=== PATIENT | female | born 1985 | race Two or more races ===

== ENCOUNTER 2018-01-01 18:23 | Inpatient (IN) | payer OTHER ==
[2018-01-01] MEDS ORDERED: MELATONIN 5 MG TABLETS PO PRN (22:00)
--- NOTE | 2018-01-01 22:02 | HP ---
"Admission ROS [facility] Chief Complaint: Here for rehab. Hx cocaine use. On Suboxone. Allergies/Adverse Reactions: Allergies Allergy/AdvReac Type Severity Reaction Status Date / Time shellfish derived Allergy Verified 01/01/18 21:26 History of Present Illness: 32 yof w/ hx heroin use disorder x 10 years. Currently on Suboxone prescribed by [facility]. Current dose is 8/2 plus 2/.05 SL TID. Medications Last cocaine use 4 months ago. Was discharged from [facility] today, 01/01/18. 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 Was prescribed gabapentin for anxiety. denies pain. Depakote for seizures. Last seizure 3 years ago. Search Terms: Jasmina Nugent, 1985 Search Date: 01/01/2018 09:34:04 PM The Drug Utilization Report below displays all of the controlled substance prescriptions, if any, that your patient has filled in the last twelve months. The information displayed on this report is compiled from pharmacy submissions to the Department, and accurately reflects the information as submitted by the pharmacies. This report was requested by: Dianne South | Reference #: [id number] There are no results for the search terms that you entered. Exam Limitations: No Limitations - Ebola screening Have you traveled outside of the country in the last 21 days: No (N) Have you had contact with anyone from an Ebola affected area: No Do you have a fever: No - Review of Systems Constitutional: No Symptoms Reported, Changes in sleep (Difficulty falling asleep. Has rx'd w/ benadryl OTC) EENT: reports: Dental Problems (S/p tooth removal months ago. Chews and swallows ok.) Respiratory: reports: No Symptoms reported Cardiac: reports: Other (Rcent heart valve replacement. Denies chest pain, irregular heart rate, or shortness of breath.) GI: reports: No Symptoms Reported : reports: No Symptoms Reported Musculoskeletal: reports: No Symptoms Reported Integumentary: reports: No Symptoms Reported Neuro: reports: No Symptoms reported, Seizure (Last seizure 3 years ago) Endocrine: reports: No Symptoms Reported Hematology: reports: Easy Bleeding (Not at this time but on blood thinners.) Psychiatric: reports: Anxious (Hx aniet on gabapentin.), Depressed (Denies thoughts of harm to self or others.) Patient History - Smoking Cessation Smoking history: Unknown if ever smoked Admission Physical Exam [facility] - Physical General Appearance: Yes: Appropriately Dressed, Cachetic HEENTM: Yes: EOMI, Hearing grossly Normal, Normocephalic, DAVE Respiratory: Yes: Chest Non-Tender, Lungs Clear, Normal Breath Sounds Neck: Yes: No masses,lesions,Nodules, Supple Breast: Yes: Breast Exam Deferred Cardiology: Yes: Regular Rhythm, Murmur (Hx valve replacement.), Tachycardia Abdominal: Yes: Normal Bowel Sounds, Non Tender, Flat, Soft Genitourinary: Yes: Within Normal Limits Back: Yes: Normal Inspection Musculoskeletal: Yes: full range of Motion, Gait Steady Extremities: Yes: Normal Capillary Refill, Normal Inspection, Normal Range of Motion, Non-Tender 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, Fully Oriented, Motor Strength 5/5, Normal Mood/Affect Integumentary: Yes: Normal Color, Dry, Warm, Other (Healed recent mid-sternal surgical incision.) Lymphatic: Yes: Within Normal Limits - Diagnostic (1) Cocaine dependence in remission Current Visit: Yes Status: Chronic (2) Buprenorphine dependence Current Visit: Yes Status: Chronic (3) History of heart valve replacement Current Visit: Yes Status: Chronic (4) Murmur, cardiac Current Visit: Yes Status: Acute (5) Underweight due to inadequate caloric intake Current Visit: Yes Status: Acute (6) Hx of seizure disorder Current Visit: Yes Status: Acute (7) History of endocarditis Current Visit: No Status: Resolved Cleared for Admission [facility] - Detox or Rehab Claeared for Rehab Admission: Yes Inpatient Rehab Admission - Initial Determination Are CD services needed?: Yes Free of communicable disease: Yes Not in need of hospitalization: Yes - Rehab Admission Criteria Previous failed treatment: Yes Poor recovery environment: Yes Comorbidities: Yes Lacks judgement: No Patient is meeting Inpatient Rehab admission criteria:: Yes"
[2018-01-01] MEDS ORDERED: MAG HYDROX/AL HYDROX/SIMETH 30 ML UNIT-DOSE CUP PO PRN (22:15)
[2018-01-01] MEDS ORDERED: P-EPHED 60MG/TRIPROLIDI 2.5MG TABLET PO PRN (22:15)
[2018-01-01] MEDS ORDERED: ACETAMINOPHEN 325 MG TABLET (FP) PO PRN (22:15)
[2018-01-01] MEDS ORDERED: guaiFENesin/D-METHORPHAN HB 10 ML UNIT-DOSE CUPS PO PRN (22:15)
[2018-01-01] MEDS ORDERED: MAGNESIUM CITRATE 300 ML BOTTLE PO PRN (22:15)
[2018-01-01] MEDS ORDERED: MENTHOL/PHENOL 1 EACH UD MM PRN (22:15)
[2018-01-01] MEDS ORDERED: LOPERAMIDE HCL 2 MG CAPSULE PO PRN (22:15)
[2018-01-01] MEDS ORDERED: MAGNESIUM HYDROX 2400MG/30ML ORAL SUSPENSION 30 ML CUP PO PRN (22:15)
[2018-01-02] MEDS ORDERED: TUBERCULIN PPD 5 TU/0.1ML VIAL ID ONE
[2018-01-02] MEDS: METOPROLOL TARTRATE 25 MG TABLET (FP) PO SCH ×3 (00:22→21:08)
[2018-01-02] MEDS ORDERED: BUPRENORPHINE/NALOXONE 2 MG/0.5 MG FILM PACKET ONE ×3 (04:55→20:15)
[2018-01-02] MEDS ORDERED: BUPRENORPHINE/NALOXONE 8 MG/2 MG FILM PACKET ONE ×3 (04:56→20:15)
[2018-01-02] MEDS ORDERED: NALOXONE SL SCH (06:00)
[2018-01-02] MEDS ORDERED: BUPRENORPHINE SL SCH (06:00)
[2018-01-02] MEDS ORDERED: [UNRECOGNIZED DRUG - OTHER] SL SCH (06:00)
[2018-01-02] MEDS ORDERED: BUPRENORPHINE/NALOXONE 8 MG/2 MG FILM PACKET SL SCH (06:00)
[2018-01-02] MEDS ORDERED: BUPRENORPHINE/NALOXONE 2 MG/0.5 MG FILM PACKET SL SCH (06:00)
[2018-01-02] MEDS ORDERED: DOCUSATE SODIUM 100 MG CAPSULE (FP) PO SCH ×2 (06:00→10:00)
[2018-01-02] MEDS: BUPRENORPHINE/NALOXONE 1 EACH, BUPRENORPHINE/NALOXONE 1 EACH SL SCH ×3 (06:22→21:08)
[2018-01-02] MEDS: DOCUSATE SODIUM 100 MG CAPSULE (FP) PO SCH ×3 (06:22→21:07)
[2018-01-02] MEDS: ASPIRIN COATED 81 MG TABLET.EC PO SCH (09:42)
[2018-01-02] MEDS: PRENATAL VITAMINS W/ FOLIC ACID TABLET (FP) PO SCH (09:42)
[2018-01-02] MEDS: DIVALPROEX SODIUM 250 MG TABLET E.C. PO SCH ×2 (09:43→21:07)
[2018-01-02] MEDS: FLUCONAZOLE 100 MG TABLET (UD) PO SCH (09:43)
[2018-01-02] MEDS: APIXABAN 5 MG TABLET PO SCH ×2 (09:44→21:52)
[2018-01-02] MEDS ORDERED: APIXABAN 5 MG TABLET PO SCH ×2 (10:00)
[2018-01-02] MEDS ORDERED: FLUCONAZOLE 100 MG TABLET (UD) PO SCH (10:00)
[2018-01-02 10:20] LABS: HEMATOCRIT 27.1 % (32.4-45.2); HEMOGLOBIN 9.6 GM/dL (10.7-15.3); MCHC 35.4 g/dl (32.0-36.0); MEAN CELL VOLUME 84.5 fl (80-96); MEAN PLT VOLUME 7.6 fl (7.5-11.1); PLATELET COUNT 236 K/MM3 (134-434); RBC 3.21 M/mm3 (3.60-5.2); WHITE BLOOD COUNT 3.9 K/mm3 (4.0-10.0)
[2018-01-02 10:29] LABS: URINE APPEARANCE SLCLOUDY; URINE BILIRUBIN NEGATIVE (<2.0 mg/dL); URINE COLOR YELLOW; URINE GLUCOSE (UA) NEGATIVE (NEGATIVE); URINE KETONE NEGATIVE (NEGATIVE); URINE LEUK ESTERASE NEGATIVE (NEGATIVE); URINE NITRITE NEGATIVE (NEGATIVE); URINE PROTEIN NEGATIVE (NEGATIVE); URINE UROBILINOGEN NEGATIVE mg/dL (0.2-1.0)
[2018-01-02 10:37] LABS: ALBUMIN 3.2 g/dl (3.4-5.0); ANION GAP 8 (8-16); BLOOD UREA NITROGEN 21 mg/dL (7-18); CHLORIDE 104 mmol/L (98-107); CO2 28 mmol/L (21-32); GLUCOSE,RANDOM 93 mg/dL (74-106); SGOT/AST 16 U/L (15-37); SGPT/ALT 16 U/L (12-78); SODIUM 140 mmol/L (136-145)
[2018-01-02 10:39] LABS: ALK PHOS 73 U/L (45-117); BILIRUBIN,TOTAL 0.2 mg/dL (0.2-1.0); TOT PROT 7.2 g/dl (6.4-8.2)
[2018-01-02] MEDS: THIAMINE HCL 100 MG TABLET (FP) PO SCH (21:07)
[2018-01-02] MEDS ORDERED: PT OWN MED DRAWER 7, Y5N ONE (21:13)
[2018-01-03] MEDS ORDERED: BUPRENORPHINE/NALOXONE 2 MG/0.5 MG FILM PACKET ONE ×3 (03:18→21:13)
[2018-01-03] MEDS ORDERED: BUPRENORPHINE/NALOXONE 8 MG/2 MG FILM PACKET ONE ×3 (03:18→21:14)
[2018-01-03] MEDS: DOCUSATE SODIUM 100 MG CAPSULE (FP) PO SCH ×3 (06:15→21:11)
[2018-01-03] MEDS: BUPRENORPHINE/NALOXONE 1 EACH, BUPRENORPHINE/NALOXONE 1 EACH SL SCH ×4 (06:18→21:14)
[2018-01-03] MEDS ORDERED: PT OWN MED DRAWER 7, Y5N ONE ×3 (08:40→19:50)
[2018-01-03] MEDS: PRENATAL VITAMINS W/ FOLIC ACID TABLET (FP) PO SCH (09:58)
[2018-01-03] MEDS: ASPIRIN COATED 81 MG TABLET.EC PO SCH (09:58)
[2018-01-03] MEDS: METOPROLOL TARTRATE 25 MG TABLET (FP) PO SCH ×2 (09:58→21:11)
[2018-01-03] MEDS: APIXABAN 5 MG TABLET PO SCH ×2 (09:58→21:11)
[2018-01-03] MEDS: FLUCONAZOLE 100 MG TABLET (UD) PO SCH (11:00)
[2018-01-03] MEDS: DIVALPROEX SODIUM 250 MG TABLET E.C. PO SCH ×2 (11:00→21:10)
[2018-01-03] MEDS: THIAMINE HCL 100 MG TABLET (FP) PO SCH (21:09)
[2018-01-04] MEDS: DOCUSATE SODIUM 100 MG CAPSULE (FP) PO SCH ×3 (06:26→21:40)
[2018-01-04] MEDS ORDERED: BUPRENORPHINE/NALOXONE 2 MG/0.5 MG FILM PACKET ONE ×3 (08:25→19:36)
[2018-01-04] MEDS ORDERED: BUPRENORPHINE/NALOXONE 8 MG/2 MG FILM PACKET ONE ×3 (08:26→19:36)
[2018-01-04] MEDS ORDERED: PT OWN MED DRAWER 7, Y5N ONE ×3 (08:29→09:01)
[2018-01-04] MEDS: BUPRENORPHINE/NALOXONE 1 EACH, BUPRENORPHINE/NALOXONE 1 EACH SL SCH ×3 (08:59→21:40)
--- NOTE | 2018-01-04 09:48 | HP ---
Psychiatrist Admission - Data Date of interview: 01/04/18 Admission source: [facility] Identifying data: This is the first admission to [address] [place] [address] for this 32 years old H single female mother of 4 (kids reside with their father).Patient is undomiciled,supported by family. Medical History: Significant for H/O Endocarditis,H/O Heart valve replacement,H/ O seizures. Psychiatric History: Patient reports first contact with psychiatrist at 12 years old to address her stressful situation at home(bad parents divorce) .patient was placed on psychotherpay .She started on medications since 15 yo while bieng in .Patient was depressed,hyperactive.She was dx with ADHD, Bipolar disorder.She reports 3 psychiatric hospitalizations.Most recent was 2-3 years ago due to suicidal ideas while under influence of drugs.She stopped to see a psychiatrist about 1 years ago. Physical/Sexual Abuse/Trauma History: denies Vital Signs: Vital Signs - 24 hr 01/03/18 01/04/18 01/04/18 23:01 03:30 06:48 Temperature 97.7 F Pulse Rate 103 H 96 H Respiratory 16 18 Rate Blood Pressure 104/69 90/57 Allergies/Adverse Reactions: Allergies Allergy/AdvReac Type Severity Reaction Status Date / Time shellfish derived Allergy Verified 01/01/18 21:26 Date of last physical exam: 12/26/17 Concur with the findings of this exam: Yes - Substance Abuse/Tx History Hx Alcohol Use: Yes (socially) Hx Substance Use: Yes (cocainr since 17 yo,heroin iv since 17 yo- on suboxone 10 mg po tid) Substance Use Type: Cocaine, Heroin Hx Substance Use Treatment: Yes (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,no 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 time) Mental Status Exam - Mental Status Exam Alert and Oriented to: Time, Place, Person Cognitive Function: Grossly Intact Patient Appearance: Unkempt Mood: Sad, Anxious Affect: Labile Patient Behavior: Cooperative Speech Pattern: Clear Voice Loudness: Normal Thought Process: Goal Oriented Thought Disorder: Not Present Hallucinations: Denies Suicidal Ideation: Denies Homicidal Ideation: Denies Insight/Judgement: Fair Sleep: Fair Appetite: Good Muscle strength/Tone: Normal Gait/Station: Normal Psychiatric Findings - Problem List ([place] 1, 2,3) (1) Hx of seizure disorder Current Visit: Yes Status: Chronic (2) Buprenorphine dependence Current Visit: Yes Status: Chronic (3) Cocaine dependence in remission Current Visit: Yes Status: Chronic (4) History of heart valve replacement Current Visit: Yes Status: Resolved (5) History of endocarditis Current Visit: Yes Status: Resolved (6) Opioid dependence Current Visit: Yes Status: Chronic (7) Bipolar II disorder Current Visit: Yes Status: Chronic (8) Underweight due to inadequate caloric intake Current Visit: Yes Status: Chronic - Initial Treatment Plan Initial Treatment Plan: Continue Depakote 750 mg po bid,Neurontin 600 mg po tid, add Remeron 15 mg po hs.Will monitor progress.
[2018-01-04] MEDS: PRENATAL VITAMINS W/ FOLIC ACID TABLET (FP) PO SCH (10:01)
[2018-01-04] MEDS: DIVALPROEX 500 MG, DIVALPROEX 250 MG PO SCH ×2 (10:02→21:40)
[2018-01-04] MEDS: ASPIRIN COATED 81 MG TABLET.EC PO SCH (10:02)
[2018-01-04] MEDS: FLUCONAZOLE 100 MG TABLET (UD) PO SCH (10:03)
[2018-01-04] MEDS: APIXABAN 5 MG TABLET PO SCH ×2 (10:04→21:30)
[2018-01-04] MEDS: METOPROLOL TARTRATE 25 MG TABLET (FP) PO SCH ×2 (11:08→22:25)
--- NOTE | 2018-01-04 11:08 | EKG ---
Test Reason : Blood Pressure : / mmHG Vent. Rate : 100 BPM Atrial Rate : 100 BPM P-R Int : 122 ms QRS Dur : 082 ms QT Int : 342 ms P-R-T Axes : 047 039 056 degrees QTc Int : 441 ms NORMAL SINUS RHYTHM CANNOT RULE OUT ANTERIOR INFARCT , AGE UNDETERMINED ABNORMAL ECG NO PREVIOUS ECGS AVAILABLE Confirmed by GRICELDA ZAMORA, DAVID ([id number]) on 01/04/2018 11:08:17 AM Referred By: Confirmed By:DAVID MADISON MD
--- NOTE | 2018-01-04 14:05 | PN ---
[facility] Progress Note Note: Vital Signs Temperature 97.7 F 01/04/18 06:48 Pulse Rate 103 H 01/04/18 10:00 Respiratory Rate 18 01/04/18 06:48 Blood Pressure 91/58 01/04/18 10:00 O2 Sat by Pulse Oximetry (%) Patient asymptomatic reports occasional nausea suboxone renewal order Reference #: [id number] Others' Prescriptions Patient Name: Jasmina Nugent Date: 1985 Address: [address] [place] [address] Sex: Female Rx Written Rx Dispensed Drug Quantity Days Supply Prescriber Name 01/01/2018 01/01/2018 buprenorphine-naloxone 8-2 mg sl tablet 90 30 Ronny Escobar MD 01/01/2018 01/01/2018 buprenorphine-naloxone 2-0.5 mg sl tablet 90 30 Ronny Escobar MD medication order continue to monitor
[2018-01-04] MEDS ORDERED: BUPRENORPHINE/NALOXONE 2 MG/0.5 MG FILM PACKET SL SCH (17:00)
[2018-01-04] MEDS ORDERED: BUPRENORPHINE/NALOXONE 8 MG/2 MG FILM PACKET SL SCH ×2 (17:02→22:00)
[2018-01-04] MEDS ORDERED: DIVALPROEX SODIUM 250 MG TABLET E.C. ONE (19:38)
[2018-01-04] MEDS ORDERED: DIVALPROEX SODIUM 500 MG TABLET E.C. ONE (19:38)
[2018-01-04] MEDS: THIAMINE HCL 100 MG TABLET (FP) PO SCH (21:41)
[2018-01-04] MEDS: MIRTAZAPINE 15 MG TABLET (FP) PO SCH (23:09)
[2018-01-05] MEDS ORDERED: BUPRENORPHINE/NALOXONE 2 MG/0.5 MG FILM PACKET ONE ×3 (05:56→19:44)
[2018-01-05] MEDS ORDERED: BUPRENORPHINE/NALOXONE 8 MG/2 MG FILM PACKET ONE ×3 (05:57→19:44)
[2018-01-05] MEDS: DOCUSATE SODIUM 100 MG CAPSULE (FP) PO SCH ×3 (07:29→21:36)
[2018-01-05] MEDS ORDERED: DIVALPROEX SODIUM 250 MG TABLET E.C. ONE ×2 (08:37→19:44)
[2018-01-05] MEDS ORDERED: DIVALPROEX SODIUM 500 MG TABLET E.C. ONE ×2 (08:37→19:44)
[2018-01-05] MEDS ORDERED: PT OWN MED DRAWER 7, Y5N ONE (08:38)
[2018-01-05] MEDS: DIVALPROEX 500 MG, DIVALPROEX 250 MG PO SCH ×2 (09:11→21:36)
[2018-01-05] MEDS: BUPRENORPHINE/NALOXONE 1 EACH, BUPRENORPHINE/NALOXONE 1 EACH SL SCH ×3 (09:11→21:36)
[2018-01-05] MEDS: FLUCONAZOLE 100 MG TABLET (UD) PO SCH (09:12)
[2018-01-05] MEDS: APIXABAN 5 MG TABLET PO SCH ×2 (09:12→21:37)
[2018-01-05] MEDS: ASPIRIN COATED 81 MG TABLET.EC PO SCH (09:13)
[2018-01-05] MEDS: METOPROLOL TARTRATE 25 MG TABLET (FP) PO SCH ×2 (09:13→21:37)
[2018-01-05] MEDS: PRENATAL VITAMINS W/ FOLIC ACID TABLET (FP) PO SCH (09:13)
[2018-01-05] MEDS ORDERED: BUPRENORPHINE/NALOXONE 8 MG/2 MG FILM PACKET SL SCH (10:00)
[2018-01-05] MEDS ORDERED: BUPRENORPHINE/NALOXONE 2 MG/0.5 MG FILM PACKET SL SCH (10:00)
[2018-01-05] MEDS: MIRTAZAPINE 15 MG TABLET (FP) PO SCH (21:36)
[2018-01-05] MEDS: THIAMINE HCL 100 MG TABLET (FP) PO SCH (21:36)
[2018-01-06] MEDS: DOCUSATE SODIUM 100 MG CAPSULE (FP) PO SCH ×3 (06:40→21:09)
[2018-01-06] MEDS ORDERED: DIVALPROEX SODIUM 500 MG TABLET E.C. ONE ×2 (08:23→19:00)
[2018-01-06] MEDS ORDERED: DIVALPROEX SODIUM 250 MG TABLET E.C. ONE ×2 (08:24→19:00)
[2018-01-06] MEDS ORDERED: BUPRENORPHINE/NALOXONE 8 MG/2 MG FILM PACKET ONE ×3 (08:50→21:08)
[2018-01-06] MEDS ORDERED: BUPRENORPHINE/NALOXONE 2 MG/0.5 MG FILM PACKET ONE ×3 (08:50→21:08)
[2018-01-06] MEDS: BUPRENORPHINE/NALOXONE 1 EACH, BUPRENORPHINE/NALOXONE 1 EACH SL SCH ×3 (08:52→21:08)
[2018-01-06] MEDS: DIVALPROEX 500 MG, DIVALPROEX 250 MG PO SCH ×2 (09:56→21:09)
[2018-01-06] MEDS: FLUCONAZOLE 100 MG TABLET (UD) PO SCH (09:56)
[2018-01-06] MEDS: ASPIRIN COATED 81 MG TABLET.EC PO SCH (09:57)
[2018-01-06] MEDS: PRENATAL VITAMINS W/ FOLIC ACID TABLET (FP) PO SCH (09:57)
[2018-01-06] MEDS: APIXABAN 5 MG TABLET PO SCH ×2 (09:58→21:09)
[2018-01-06] MEDS: METOPROLOL TARTRATE 25 MG TABLET (FP) PO SCH ×2 (09:58→21:10)
[2018-01-06] MEDS: THIAMINE HCL 100 MG TABLET (FP) PO SCH (21:09)
[2018-01-06] MEDS: MIRTAZAPINE 15 MG TABLET (FP) PO SCH (21:09)
[2018-01-07] MEDS: DOCUSATE SODIUM 100 MG CAPSULE (FP) PO SCH ×3 (07:07→21:13)
[2018-01-07] MEDS ORDERED: DIVALPROEX SODIUM 500 MG TABLET E.C. ONE ×2 (08:09→19:27)
[2018-01-07] MEDS ORDERED: DIVALPROEX SODIUM 250 MG TABLET E.C. ONE ×2 (08:09→19:27)
[2018-01-07] MEDS: DIVALPROEX 500 MG, DIVALPROEX 250 MG PO SCH ×2 (09:03→21:13)
[2018-01-07] MEDS: FLUCONAZOLE 100 MG TABLET (UD) PO SCH (09:03)
[2018-01-07] MEDS: ASPIRIN COATED 81 MG TABLET.EC PO SCH (09:03)
[2018-01-07] MEDS: APIXABAN 5 MG TABLET PO SCH ×2 (09:04→21:13)
[2018-01-07] MEDS ORDERED: BUPRENORPHINE/NALOXONE 2 MG/0.5 MG FILM PACKET ONE ×3 (09:07→21:12)
[2018-01-07] MEDS ORDERED: BUPRENORPHINE/NALOXONE 8 MG/2 MG FILM PACKET ONE ×3 (09:07→21:12)
[2018-01-07] MEDS: BUPRENORPHINE/NALOXONE 1 EACH, BUPRENORPHINE/NALOXONE 1 EACH SL SCH ×3 (09:08→21:13)
[2018-01-07] MEDS: METOPROLOL TARTRATE 25 MG TABLET (FP) PO SCH ×2 (10:21→21:15)
[2018-01-07] MEDS: PRENATAL VITAMINS W/ FOLIC ACID TABLET (FP) PO SCH (10:21)
[2018-01-07] MEDS: MIRTAZAPINE 15 MG TABLET (FP) PO SCH (21:13)
[2018-01-07] MEDS: THIAMINE HCL 100 MG TABLET (FP) PO SCH (21:13)
[2018-01-08] MEDS: DOCUSATE SODIUM 100 MG CAPSULE (FP) PO SCH ×3 (06:27→21:11)
[2018-01-08] MEDS ORDERED: BUPRENORPHINE/NALOXONE 2 MG/0.5 MG FILM PACKET ONE ×3 (08:46→19:25)
[2018-01-08] MEDS ORDERED: BUPRENORPHINE/NALOXONE 8 MG/2 MG FILM PACKET ONE ×3 (08:46→19:26)
[2018-01-08] MEDS ORDERED: DIVALPROEX SODIUM 250 MG TABLET E.C. ONE ×2 (08:47→19:21)
[2018-01-08] MEDS ORDERED: DIVALPROEX SODIUM 500 MG TABLET E.C. ONE ×2 (08:47→19:21)
[2018-01-08] MEDS: BUPRENORPHINE/NALOXONE 1 EACH, BUPRENORPHINE/NALOXONE 1 EACH SL SCH ×3 (08:54→21:10)
[2018-01-08] MEDS: DIVALPROEX 500 MG, DIVALPROEX 250 MG PO SCH ×2 (09:56→21:10)
[2018-01-08] MEDS: ASPIRIN COATED 81 MG TABLET.EC PO SCH (09:57)
[2018-01-08] MEDS: FLUCONAZOLE 100 MG TABLET (UD) PO SCH (09:57)
[2018-01-08] MEDS: APIXABAN 5 MG TABLET PO SCH ×2 (09:57→21:11)
[2018-01-08] MEDS: METOPROLOL TARTRATE 25 MG TABLET (FP) PO SCH ×2 (09:58→21:15)
[2018-01-08] MEDS: PRENATAL VITAMINS W/ FOLIC ACID TABLET (FP) PO SCH (09:58)
[2018-01-08] MEDS: MIRTAZAPINE 15 MG TABLET (FP) PO SCH (21:11)
[2018-01-08] MEDS: THIAMINE HCL 100 MG TABLET (FP) PO SCH (21:13)
[2018-01-09] MEDS: DOCUSATE SODIUM 100 MG CAPSULE (FP) PO SCH ×3 (07:19→21:12)
[2018-01-09] MEDS ORDERED: DIVALPROEX SODIUM 500 MG TABLET E.C. ONE ×2 (08:39→19:15)
[2018-01-09] MEDS ORDERED: DIVALPROEX SODIUM 250 MG TABLET E.C. ONE ×2 (08:39→19:15)
[2018-01-09] MEDS ORDERED: BUPRENORPHINE/NALOXONE 2 MG/0.5 MG FILM PACKET ONE ×3 (09:01→21:14)
[2018-01-09] MEDS ORDERED: BUPRENORPHINE/NALOXONE 8 MG/2 MG FILM PACKET ONE ×3 (09:01→21:14)
[2018-01-09] MEDS: BUPRENORPHINE/NALOXONE 1 EACH, BUPRENORPHINE/NALOXONE 1 EACH SL SCH ×3 (09:03→21:14)
[2018-01-09] MEDS: FLUCONAZOLE 100 MG TABLET (UD) PO SCH (09:40)
[2018-01-09] MEDS: DIVALPROEX 500 MG, DIVALPROEX 250 MG PO SCH ×2 (09:41→21:12)
[2018-01-09] MEDS: PRENATAL VITAMINS W/ FOLIC ACID TABLET (FP) PO SCH (09:41)
[2018-01-09] MEDS: ASPIRIN COATED 81 MG TABLET.EC PO SCH (09:41)
[2018-01-09] MEDS: APIXABAN 5 MG TABLET PO SCH ×2 (09:41→21:12)
[2018-01-09] MEDS: METOPROLOL TARTRATE 25 MG TABLET (FP) PO SCH ×2 (09:41→21:15)
[2018-01-09] MEDS: MIRTAZAPINE 15 MG TABLET (FP) PO SCH (21:12)
[2018-01-09] MEDS: THIAMINE HCL 100 MG TABLET (FP) PO SCH (21:12)
[2018-01-10] MEDS: DOCUSATE SODIUM 100 MG CAPSULE (FP) PO SCH ×3 (07:58→21:12)
[2018-01-10] MEDS ORDERED: DIVALPROEX SODIUM 500 MG TABLET E.C. ONE ×2 (08:42→19:23)
[2018-01-10] MEDS ORDERED: DIVALPROEX SODIUM 250 MG TABLET E.C. ONE ×2 (08:42→19:23)
[2018-01-10] MEDS ORDERED: BUPRENORPHINE/NALOXONE 2 MG/0.5 MG FILM PACKET ONE ×3 (09:48→21:11)
[2018-01-10] MEDS ORDERED: BUPRENORPHINE/NALOXONE 8 MG/2 MG FILM PACKET ONE ×3 (09:48→21:11)
[2018-01-10] MEDS: BUPRENORPHINE/NALOXONE 1 EACH, BUPRENORPHINE/NALOXONE 1 EACH SL SCH ×3 (09:55→21:13)
[2018-01-10] MEDS: APIXABAN 5 MG TABLET PO SCH ×2 (10:03→21:12)
[2018-01-10] MEDS: DIVALPROEX 500 MG, DIVALPROEX 250 MG PO SCH ×2 (10:03→21:12)
[2018-01-10] MEDS: PRENATAL VITAMINS W/ FOLIC ACID TABLET (FP) PO SCH (10:03)
[2018-01-10] MEDS: ASPIRIN COATED 81 MG TABLET.EC PO SCH (10:04)
[2018-01-10] MEDS: FLUCONAZOLE 100 MG TABLET (UD) PO SCH (10:04)
[2018-01-10] MEDS: METOPROLOL TARTRATE 25 MG TABLET (FP) PO SCH ×2 (10:04→21:12)
[2018-01-10] MEDS: MIRTAZAPINE 15 MG TABLET (FP) PO SCH (21:12)
[2018-01-10] MEDS: THIAMINE HCL 100 MG TABLET (FP) PO SCH (21:14)
[2018-01-11] MEDS: DOCUSATE SODIUM 100 MG CAPSULE (FP) PO SCH ×3 (06:31→21:10)
[2018-01-11] MEDS ORDERED: DIVALPROEX SODIUM 250 MG TABLET E.C. ONE ×2 (08:26→19:52)
[2018-01-11] MEDS ORDERED: DIVALPROEX SODIUM 500 MG TABLET E.C. ONE ×2 (08:26→19:52)
[2018-01-11] MEDS ORDERED: BUPRENORPHINE/NALOXONE 2 MG/0.5 MG FILM PACKET ONE ×3 (09:07→21:09)
[2018-01-11] MEDS ORDERED: BUPRENORPHINE/NALOXONE 8 MG/2 MG FILM PACKET ONE ×3 (09:07→21:10)
[2018-01-11] MEDS: BUPRENORPHINE/NALOXONE 1 EACH, BUPRENORPHINE/NALOXONE 1 EACH SL SCH ×3 (09:09→21:10)
[2018-01-11] MEDS: FLUCONAZOLE 100 MG TABLET (UD) PO SCH (09:09)
[2018-01-11] MEDS: PRENATAL VITAMINS W/ FOLIC ACID TABLET (FP) PO SCH (09:09)
[2018-01-11] MEDS: ASPIRIN COATED 81 MG TABLET.EC PO SCH (09:09)
[2018-01-11] MEDS: DIVALPROEX 500 MG, DIVALPROEX 250 MG PO SCH ×2 (09:09→21:10)
[2018-01-11] MEDS: APIXABAN 5 MG TABLET PO SCH ×2 (09:10→21:10)
[2018-01-11] MEDS: METOPROLOL TARTRATE 25 MG TABLET (FP) PO SCH ×2 (09:11→21:30)
[2018-01-11] MEDS ORDERED: PT OWN MED DRAWER 7, Y5N ONE (21:05)
[2018-01-11] MEDS: MIRTAZAPINE 15 MG TABLET (FP) PO SCH (21:10)
[2018-01-11] MEDS: THIAMINE HCL 100 MG TABLET (FP) PO SCH (21:13)
[2018-01-12] MEDS: DOCUSATE SODIUM 100 MG CAPSULE (FP) PO SCH ×3 (06:22→21:04)
[2018-01-12] MEDS ORDERED: DIVALPROEX SODIUM 250 MG TABLET E.C. ONE ×2 (08:30→20:18)
[2018-01-12] MEDS ORDERED: DIVALPROEX SODIUM 500 MG TABLET E.C. ONE ×2 (08:30→20:18)
[2018-01-12] MEDS: FLUCONAZOLE 100 MG TABLET (UD) PO SCH (09:48)
[2018-01-12] MEDS: DIVALPROEX 500 MG, DIVALPROEX 250 MG PO SCH ×2 (09:49→21:03)
[2018-01-12] MEDS: APIXABAN 5 MG TABLET PO SCH ×2 (09:49→21:03)
[2018-01-12] MEDS: PRENATAL VITAMINS W/ FOLIC ACID TABLET (FP) PO SCH (09:49)
[2018-01-12] MEDS: ASPIRIN COATED 81 MG TABLET.EC PO SCH (09:50)
[2018-01-12] MEDS: BUPRENORPHINE/NALOXONE 1 EACH, BUPRENORPHINE/NALOXONE 1 EACH SL SCH ×3 (09:51→21:04)
[2018-01-12] MEDS ORDERED: BUPRENORPHINE/NALOXONE 2 MG/0.5 MG FILM PACKET ONE ×3 (09:51→20:20)
[2018-01-12] MEDS ORDERED: BUPRENORPHINE/NALOXONE 8 MG/2 MG FILM PACKET ONE ×3 (09:51→20:21)
[2018-01-12] MEDS: METOPROLOL TARTRATE 25 MG TABLET (FP) PO SCH ×2 (09:53→21:05)
[2018-01-12] MEDS: COLLOIDAL OATMEAL 1 BAR EACH TP PRN (15:00)
[2018-01-12] MEDS: MIRTAZAPINE 15 MG TABLET (FP) PO SCH (21:04)
[2018-01-12] MEDS: THIAMINE HCL 100 MG TABLET (FP) PO SCH (21:04)
[2018-01-13] MEDS: DOCUSATE SODIUM 100 MG CAPSULE (FP) PO SCH ×3 (06:42→21:17)
[2018-01-13] MEDS ORDERED: BUPRENORPHINE/NALOXONE 8 MG/2 MG FILM PACKET ONE ×3 (08:15→21:12)
[2018-01-13] MEDS ORDERED: BUPRENORPHINE/NALOXONE 2 MG/0.5 MG FILM PACKET ONE ×3 (08:15→21:12)
[2018-01-13] MEDS ORDERED: DIVALPROEX SODIUM 500 MG TABLET E.C. ONE ×2 (08:16→19:25)
[2018-01-13] MEDS ORDERED: DIVALPROEX SODIUM 250 MG TABLET E.C. ONE ×2 (08:16→19:25)
[2018-01-13] MEDS: FLUCONAZOLE 100 MG TABLET (UD) PO SCH (09:01)
[2018-01-13] MEDS: DIVALPROEX 500 MG, DIVALPROEX 250 MG PO SCH ×2 (09:01→21:17)
[2018-01-13] MEDS: APIXABAN 5 MG TABLET PO SCH ×2 (09:01→21:17)
[2018-01-13] MEDS: BUPRENORPHINE/NALOXONE 1 EACH, BUPRENORPHINE/NALOXONE 1 EACH SL SCH ×3 (09:02→21:19)
[2018-01-13] MEDS: PRENATAL VITAMINS W/ FOLIC ACID TABLET (FP) PO SCH (09:02)
[2018-01-13] MEDS: METOPROLOL TARTRATE 25 MG TABLET (FP) PO SCH ×2 (09:02→21:18)
[2018-01-13] MEDS: ASPIRIN COATED 81 MG TABLET.EC PO SCH (09:02)
--- NOTE | 2018-01-13 14:45 | PN ---
[facility] Progress Note Note: DEPAKOTE LEVEL WNL. NO CHANGES IN TREATMENT REQUIRED. Vital Signs Temperature 97.7 F 01/13/18 06:39 Pulse Rate 114 H 01/13/18 09:28 Respiratory Rate 16 01/13/18 06:39 Blood Pressure 97/66 01/13/18 09:28 O2 Sat by Pulse Oximetry (%) Laboratory Tests 01/02/18 01/02/18 01/02/18 08:00 08:00 08:00 WBC 3.9 L RBC 3.21 L Hgb 9.6 L Hct 27.1 L MCV 84.5 MCH 30.0 MCHC 35.4 RDW 16.0 H Plt Count 236 MPV 7.6 Sodium 140 Potassium 4.0 Chloride 104 Carbon Dioxide 28 Anion Gap 8 BUN 21 H Creatinine 1.0 Creat Clearance w eGFR > 60 Random Glucose 93 Calcium 10.0 Total Bilirubin 0.2 AST 16 ALT 16 Alkaline Phosphatase 73 Total Protein 7.2 Albumin 3.2 L Urine Color Urine Appearance Urine pH Ur Specific [place] Urine Protein Urine Glucose (UA) Urine Ketones Urine Blood Urine Nitrite Urine Bilirubin Urine Urobilinogen Ur Leukocyte Esterase Valproic Acid RPR Titer Nonreactive 01/02/18 01/13/18 08:20 08:30 WBC RBC Hgb Hct MCV MCH MCHC RDW Plt Count MPV Sodium Potassium Chloride Carbon Dioxide Anion Gap BUN Creatinine Creat Clearance w eGFR Random Glucose Calcium Total Bilirubin AST ALT Alkaline Phosphatase Total Protein Albumin Urine Color Yellow Urine Appearance Slcloudy Urine pH 6.0 Ur Specific [place] 1.017 Urine Protein Negative Urine Glucose (UA) Negative Urine Ketones Negative Urine Blood Negative Urine Nitrite Negative Urine Bilirubin Negative Urine Urobilinogen Negative Ur Leukocyte Esterase Negative Valproic Acid 82.6 RPR Titer
--- NOTE | 2018-01-13 16:31 | PN ---
Psychiatric Progress Note Vital Signs: Vital Signs Period Temp Pulse Resp BP Sys/Hurtado Pulse Ox Last 24 Hr 97.7 F 101-118 16-18 97-115/64-66 Date of Session: 01/13/18 Chief Complaint:: Isaak still depressed,Wellbutrin used to help in the past. HPI: patient addressed Opioid ,Cocaine dependence comorbid with Bipolar disorder. ROS: H/O seizure disorder,H/O heart valve replacement. Current Medications: Active Medications Generic Name Dose Route Start Last Admin Trade Name Freq PRN Reason Stop Dose Admin Acetaminophen 650 mg 01/01/18 22:15 Tylenol - PO Q4H PRN MODERATE PAIN Al Hydroxide/Mg Hydroxide 30 ml 01/01/18 22:15 Mylanta Oral Suspension - PO Q6H PRN DYSPEPSIA Apixaban 5 mg 01/02/18 10:00 01/13/18 09:01 Eliquis - PO 5 mg BID SUNITA Administration Aspirin 81 mg 01/02/18 10:00 01/13/18 09:02 Ecotrin - PO 81 mg DAILY SUNITA Administration Buprenorphine/Naloxone 1 each/ 2 each 01/06/18 09:00 01/13/18 14:01 Buprenorphine/Naloxone 1 each SL 2 each TID@0900,1500,2200 SUNITA Administration Bupropion HCl 150 mg 01/14/18 10:00 Wellbutrin - PO BID@1000,1400 SUNITA Bupropion HCl 150 mg 01/13/18 16:24 Wellbutrin - PO 01/13/18 16:25 ONCE STA Colloidal Oatmeal 1 applic 01/11/18 14:05 01/12/18 15:00 Aveeno Soap - TP 1 applic DAILY PRN Administration HYGEINE Divalproex Sodium 500 mg/ 750 mg 01/04/18 10:00 01/13/18 09:01 Divalproex Sodium 250 mg PO 750 mg BID SUNITA Administration Docusate Sodium 100 mg 01/02/18 06:00 01/13/18 13:57 Colace - PO 100 mg TID SUNITA Administration Eucalyptus/Menthol/Phenol/Sorbitol 1 each 01/01/18 22:15 Cepastat Lozenge - MM Q4H PRN SORE THROAT Fluconazole 400 mg 01/02/18 10:00 01/13/18 09:01 Diflucan - PO 400 mg DAILY SUNITA Administration Guaifenesin 10 ml 01/01/18 22:15 Robitussin Dm - PO Q6H PRN COUGH Loperamide HCl 4 mg 01/01/18 22:15 Imodium - PO Q6H PRN DIARRHEA Magnesium Citrate 300 ml 01/01/18 22:15 Citroma - PO Q48H PRN CONSTIPATION Magnesium Hydroxide 30 ml 01/01/18 22:15 Milk Of Magnesia - PO DAILY PRN CONSTIPATION Melatonin 5 mg 01/01/18 22:00 Melatonin PO HS PRN INSOMNIA Metoprolol Tartrate 12.5 mg 01/01/18 22:00 01/13/18 09:02 Lopressor - PO Not Given BID SUNITA Mirtazapine 15 mg 01/04/18 22:00 01/12/18 21:04 Remeron - PO 15 mg HS SUNITA Administration Multivit/Folic Acid/Iron 1 tab 01/02/18 10:00 01/13/18 09:02 Vitamins (Sjr) - PO 1 tab DAILY SUNITA Administration Pseudoephedrine/Triprolidine 1 combo 01/01/18 22:15 Actifed - PO TID PRN NASAL CONGESTION Thiamine HCl 100 mg 01/02/18 22:00 01/12/18 21:04 Vitamin B1 - PO 100 mg HS SUNITA Administration Current Side Effect: No Lab tests ordered: No Lab tests reviewed: Yes Provider note:: Chart was revuewed,patient was evalusted,medications has been discussed with the patient .She reports that she responded well to wellbutrin in the past. properties of wellbutrin has been discussd with the patient including side feects,benefits and dose adjustement.Wellbutrin 150 mg po bid will be started today. supportive therapy provided. Total face to face time:: 25 Mental Status Exam - Mental Status Exam Alert and Oriented to: Time, Place, Person Cognitive Function: Grossly Intact Patient Appearance: Unkempt Mood: Depressed, Sad Affect: Mood Congruent, Labile Patient Behavior: Cooperative Speech Pattern: Clear Voice Loudness: Normal Thought Process: Goal Oriented Thought Disorder: Not Present Hallucinations: Denies Suicidal Ideation: Denies Homicidal Ideation: Denies Insight/Judgement: Fair Sleep: Fair Appetite: Fair Muscle strength/Tone: Normal Gait/Station: Normal Psychiatric Treatment Plan - Problem List (1) Hx of seizure disorder Current Visit: Yes (2) Buprenorphine dependence Current Visit: Yes (3) Cocaine dependence in remission Current Visit: Yes (4) History of heart valve replacement Current Visit: Yes (5) History of endocarditis Current Visit: Yes (6) Opioid dependence Current Visit: Yes (7) Bipolar II disorder Current Visit: Yes (8) Underweight due to inadequate caloric intake Current Visit: Yes
[2018-01-13] MEDS ORDERED: buPROPion HCL 75 MG TABLET PO ONE (16:45)
[2018-01-13] MEDS ORDERED: PT OWN MED DRAWER 7, Y5N ONE (21:12)
[2018-01-13] MEDS: MIRTAZAPINE 15 MG TABLET (FP) PO SCH (21:17)
[2018-01-13] MEDS: THIAMINE HCL 100 MG TABLET (FP) PO SCH (21:20)
[2018-01-14] MEDS: DOCUSATE SODIUM 100 MG CAPSULE (FP) PO SCH ×3 (06:29→21:10)
[2018-01-14] MEDS ORDERED: DIVALPROEX SODIUM 500 MG TABLET E.C. ONE ×2 (08:30→19:18)
[2018-01-14] MEDS ORDERED: DIVALPROEX SODIUM 250 MG TABLET E.C. ONE ×2 (08:31→19:19)
[2018-01-14] MEDS ORDERED: BUPRENORPHINE/NALOXONE 8 MG/2 MG FILM PACKET ONE ×3 (09:01→21:13)
[2018-01-14] MEDS ORDERED: BUPRENORPHINE/NALOXONE 2 MG/0.5 MG FILM PACKET ONE ×3 (09:01→21:12)
[2018-01-14] MEDS: FLUCONAZOLE 100 MG TABLET (UD) PO SCH (09:04)
[2018-01-14] MEDS: DIVALPROEX 500 MG, DIVALPROEX 250 MG PO SCH ×2 (09:04→21:10)
[2018-01-14] MEDS: buPROPion HCL 75 MG TABLET PO SCH ×2 (09:05→13:44)
[2018-01-14] MEDS: ASPIRIN COATED 81 MG TABLET.EC PO SCH (09:05)
[2018-01-14] MEDS: PRENATAL VITAMINS W/ FOLIC ACID TABLET (FP) PO SCH (09:05)
[2018-01-14] MEDS: APIXABAN 5 MG TABLET PO SCH ×2 (09:05→21:10)
[2018-01-14] MEDS: METOPROLOL TARTRATE 25 MG TABLET (FP) PO SCH ×2 (09:06→21:10)
[2018-01-14] MEDS: BUPRENORPHINE/NALOXONE 1 EACH, BUPRENORPHINE/NALOXONE 1 EACH SL SCH ×3 (09:06→21:14)
[2018-01-14] MEDS: MIRTAZAPINE 15 MG TABLET (FP) PO SCH (21:10)
[2018-01-14] MEDS: THIAMINE HCL 100 MG TABLET (FP) PO SCH (21:11)
[2018-01-15] MEDS: DOCUSATE SODIUM 100 MG CAPSULE (FP) PO SCH ×3 (06:59→21:14)
[2018-01-15] MEDS ORDERED: BUPRENORPHINE/NALOXONE 2 MG/0.5 MG FILM PACKET ONE ×3 (08:14→21:12)
[2018-01-15] MEDS ORDERED: BUPRENORPHINE/NALOXONE 8 MG/2 MG FILM PACKET ONE ×3 (08:14→21:13)
[2018-01-15] MEDS ORDERED: DIVALPROEX SODIUM 250 MG TABLET E.C. ONE ×2 (08:15→20:00)
[2018-01-15] MEDS ORDERED: DIVALPROEX SODIUM 500 MG TABLET E.C. ONE ×2 (08:15→20:00)
[2018-01-15] MEDS: APIXABAN 5 MG TABLET PO SCH ×2 (09:16→21:10)
[2018-01-15] MEDS: DIVALPROEX 500 MG, DIVALPROEX 250 MG PO SCH ×2 (09:16→21:10)
[2018-01-15] MEDS: ASPIRIN COATED 81 MG TABLET.EC PO SCH (09:16)
[2018-01-15] MEDS: PRENATAL VITAMINS W/ FOLIC ACID TABLET (FP) PO SCH (09:16)
[2018-01-15] MEDS: buPROPion HCL 75 MG TABLET PO SCH ×2 (09:17→14:34)
[2018-01-15] MEDS: BUPRENORPHINE/NALOXONE 1 EACH, BUPRENORPHINE/NALOXONE 1 EACH SL SCH ×3 (09:18→21:14)
[2018-01-15] MEDS: METOPROLOL TARTRATE 25 MG TABLET (FP) PO SCH ×2 (09:19→21:14)
[2018-01-15] MEDS: THIAMINE HCL 100 MG TABLET (FP) PO SCH (21:11)
[2018-01-15] MEDS: MIRTAZAPINE 15 MG TABLET (FP) PO SCH (21:11)
[2018-01-16] MEDS: DOCUSATE SODIUM 100 MG CAPSULE (FP) PO SCH ×3 (06:39→21:05)
[2018-01-16] MEDS ORDERED: BUPRENORPHINE/NALOXONE 2 MG/0.5 MG FILM PACKET ONE ×3 (08:42→19:15)
[2018-01-16] MEDS ORDERED: BUPRENORPHINE/NALOXONE 8 MG/2 MG FILM PACKET ONE ×3 (08:42→19:15)
[2018-01-16] MEDS ORDERED: DIVALPROEX SODIUM 500 MG TABLET E.C. ONE ×2 (08:43→19:16)
[2018-01-16] MEDS ORDERED: DIVALPROEX SODIUM 250 MG TABLET E.C. ONE ×2 (08:43→19:16)
[2018-01-16] MEDS: ASPIRIN COATED 81 MG TABLET.EC PO SCH (09:10)
[2018-01-16] MEDS: APIXABAN 5 MG TABLET PO SCH ×2 (09:10→21:03)
[2018-01-16] MEDS: PRENATAL VITAMINS W/ FOLIC ACID TABLET (FP) PO SCH (09:10)
[2018-01-16] MEDS: buPROPion HCL 75 MG TABLET PO SCH ×2 (09:10→15:00)
[2018-01-16] MEDS: DIVALPROEX 500 MG, DIVALPROEX 250 MG PO SCH ×2 (09:10→21:03)
[2018-01-16] MEDS: METOPROLOL TARTRATE 25 MG TABLET (FP) PO SCH ×2 (09:11→21:06)
[2018-01-16] MEDS: BUPRENORPHINE/NALOXONE 1 EACH, BUPRENORPHINE/NALOXONE 1 EACH SL SCH ×3 (09:12→21:04)
[2018-01-16] MEDS: MIRTAZAPINE 15 MG TABLET (FP) PO SCH (21:03)
[2018-01-16] MEDS: THIAMINE HCL 100 MG TABLET (FP) PO SCH (21:03)
[2018-01-17] MEDS: DOCUSATE SODIUM 100 MG CAPSULE (FP) PO SCH ×3 (06:45→21:05)
[2018-01-17] MEDS ORDERED: DIVALPROEX SODIUM 500 MG TABLET E.C. ONE ×2 (08:25→19:11)
[2018-01-17] MEDS ORDERED: DIVALPROEX SODIUM 250 MG TABLET E.C. ONE ×2 (08:25→19:11)
[2018-01-17] MEDS ORDERED: PT OWN MED DRAWER 7, Y5N ONE ×2 (08:27→13:39)
[2018-01-17] MEDS ORDERED: BUPRENORPHINE/NALOXONE 2 MG/0.5 MG FILM PACKET ONE ×3 (09:07→21:07)
[2018-01-17] MEDS ORDERED: BUPRENORPHINE/NALOXONE 8 MG/2 MG FILM PACKET ONE ×3 (09:07→21:07)
[2018-01-17] MEDS: BUPRENORPHINE/NALOXONE 1 EACH, BUPRENORPHINE/NALOXONE 1 EACH SL SCH ×3 (09:19→21:07)
[2018-01-17] MEDS: APIXABAN 5 MG TABLET PO SCH ×2 (09:20→21:05)
[2018-01-17] MEDS: PRENATAL VITAMINS W/ FOLIC ACID TABLET (FP) PO SCH (09:20)
[2018-01-17] MEDS: DIVALPROEX 500 MG, DIVALPROEX 250 MG PO SCH ×2 (09:20→21:05)
[2018-01-17] MEDS: METOPROLOL TARTRATE 25 MG TABLET (FP) PO SCH ×2 (09:20→21:08)
[2018-01-17] MEDS: buPROPion HCL 75 MG TABLET PO SCH ×2 (09:21→13:39)
[2018-01-17] MEDS: ASPIRIN COATED 81 MG TABLET.EC PO SCH (09:21)
[2018-01-17] MEDS: MIRTAZAPINE 15 MG TABLET (FP) PO SCH (21:05)
[2018-01-17] MEDS: THIAMINE HCL 100 MG TABLET (FP) PO SCH (21:05)
[2018-01-18] MEDS: DOCUSATE SODIUM 100 MG CAPSULE (FP) PO SCH ×3 (06:57→21:04)
[2018-01-18] MEDS ORDERED: DIVALPROEX SODIUM 500 MG TABLET E.C. ONE ×2 (09:10→20:26)
[2018-01-18] MEDS ORDERED: DIVALPROEX SODIUM 250 MG TABLET E.C. ONE ×2 (09:10→20:27)
[2018-01-18] MEDS ORDERED: BUPRENORPHINE/NALOXONE 8 MG/2 MG FILM PACKET ONE ×3 (09:38→20:26)
[2018-01-18] MEDS ORDERED: BUPRENORPHINE/NALOXONE 2 MG/0.5 MG FILM PACKET ONE ×3 (09:38→20:25)
[2018-01-18] MEDS: DIVALPROEX 500 MG, DIVALPROEX 250 MG PO SCH ×2 (09:48→21:04)
[2018-01-18] MEDS: ASPIRIN COATED 81 MG TABLET.EC PO SCH (09:49)
[2018-01-18] MEDS: APIXABAN 5 MG TABLET PO SCH ×2 (09:49→21:05)
[2018-01-18] MEDS: BUPRENORPHINE/NALOXONE 1 EACH, BUPRENORPHINE/NALOXONE 1 EACH SL SCH ×3 (09:49→21:05)
[2018-01-18] MEDS: METOPROLOL TARTRATE 25 MG TABLET (FP) PO SCH ×2 (09:51→21:04)
[2018-01-18] MEDS: PRENATAL VITAMINS W/ FOLIC ACID TABLET (FP) PO SCH (11:23)
[2018-01-18] MEDS: buPROPion HCL 75 MG TABLET PO SCH ×2 (11:24→14:06)
[2018-01-18] MEDS ORDERED: PT OWN MED DRAWER 7, Y5N ONE (13:17)
[2018-01-18] MEDS: THIAMINE HCL 100 MG TABLET (FP) PO SCH (21:04)
[2018-01-18] MEDS: QUEtiapine FUMARATE 50 MG TABLET PO SCH (21:05)
[2018-01-19] MEDS: DOCUSATE SODIUM 100 MG CAPSULE (FP) PO SCH ×3 (07:06→21:24)
[2018-01-19] MEDS ORDERED: PT OWN MED DRAWER 7, Y5N ONE (08:47)
[2018-01-19] MEDS ORDERED: BUPRENORPHINE/NALOXONE 2 MG/0.5 MG FILM PACKET ONE ×3 (08:51→20:26)
[2018-01-19] MEDS ORDERED: BUPRENORPHINE/NALOXONE 8 MG/2 MG FILM PACKET ONE ×3 (08:52→20:27)
[2018-01-19] MEDS ORDERED: DIVALPROEX SODIUM 500 MG TABLET E.C. ONE ×2 (08:53→20:28)
[2018-01-19] MEDS ORDERED: DIVALPROEX SODIUM 250 MG TABLET E.C. ONE ×2 (08:53→20:28)
[2018-01-19] MEDS: ASPIRIN COATED 81 MG TABLET.EC PO SCH (09:35)
[2018-01-19] MEDS: METOPROLOL TARTRATE 25 MG TABLET (FP) PO SCH ×2 (09:35→21:24)
[2018-01-19] MEDS: buPROPion HCL 75 MG TABLET PO SCH ×2 (09:35→13:51)
[2018-01-19] MEDS: DIVALPROEX 500 MG, DIVALPROEX 250 MG PO SCH ×2 (09:36→21:24)
[2018-01-19] MEDS: APIXABAN 5 MG TABLET PO SCH ×2 (09:36→21:24)
[2018-01-19] MEDS: PRENATAL VITAMINS W/ FOLIC ACID TABLET (FP) PO SCH (09:36)
[2018-01-19] MEDS: BUPRENORPHINE/NALOXONE 1 EACH, BUPRENORPHINE/NALOXONE 1 EACH SL SCH ×3 (09:37→21:26)
[2018-01-19] MEDS: THIAMINE HCL 100 MG TABLET (FP) PO SCH (21:24)
[2018-01-19] MEDS: QUEtiapine FUMARATE 50 MG TABLET PO SCH (21:24)
[2018-01-20] MEDS: DOCUSATE SODIUM 100 MG CAPSULE (FP) PO SCH ×3 (06:28→21:10)
[2018-01-20] MEDS ORDERED: DIVALPROEX SODIUM 500 MG TABLET E.C. ONE ×2 (08:00→20:14)
[2018-01-20] MEDS ORDERED: DIVALPROEX SODIUM 250 MG TABLET E.C. ONE ×2 (08:00→20:14)
[2018-01-20] MEDS ORDERED: BUPRENORPHINE/NALOXONE 2 MG/0.5 MG FILM PACKET ONE ×3 (09:02→20:13)
[2018-01-20] MEDS ORDERED: BUPRENORPHINE/NALOXONE 8 MG/2 MG FILM PACKET ONE ×3 (09:02→20:14)
[2018-01-20] MEDS: PRENATAL VITAMINS W/ FOLIC ACID TABLET (FP) PO SCH (09:06)
[2018-01-20] MEDS: ASPIRIN COATED 81 MG TABLET.EC PO SCH (09:06)
[2018-01-20] MEDS: buPROPion HCL 75 MG TABLET PO SCH ×2 (09:06→13:45)
[2018-01-20] MEDS: DIVALPROEX 500 MG, DIVALPROEX 250 MG PO SCH ×2 (09:06→21:10)
[2018-01-20] MEDS: APIXABAN 5 MG TABLET PO SCH ×2 (09:07→21:10)
[2018-01-20] MEDS: METOPROLOL TARTRATE 25 MG TABLET (FP) PO SCH ×2 (09:07→21:47)
[2018-01-20] MEDS: BUPRENORPHINE/NALOXONE 1 EACH, BUPRENORPHINE/NALOXONE 1 EACH SL SCH ×3 (09:08→21:10)
[2018-01-20] MEDS: THIAMINE HCL 100 MG TABLET (FP) PO SCH (21:10)
[2018-01-20] MEDS: QUEtiapine FUMARATE 50 MG TABLET PO SCH (21:10)
[2018-01-21] MEDS: DOCUSATE SODIUM 100 MG CAPSULE (FP) PO SCH ×3 (06:36→21:01)
[2018-01-21] MEDS ORDERED: BUPRENORPHINE/NALOXONE 2 MG/0.5 MG FILM PACKET ONE ×3 (08:10→20:54)
[2018-01-21] MEDS ORDERED: BUPRENORPHINE/NALOXONE 8 MG/2 MG FILM PACKET ONE ×3 (08:10→20:55)
[2018-01-21] MEDS ORDERED: DIVALPROEX SODIUM 250 MG TABLET E.C. ONE ×2 (08:11→19:09)
[2018-01-21] MEDS ORDERED: DIVALPROEX SODIUM 500 MG TABLET E.C. ONE ×2 (08:11→19:08)
[2018-01-21] MEDS: BUPRENORPHINE/NALOXONE 1 EACH, BUPRENORPHINE/NALOXONE 1 EACH SL SCH ×3 (09:35→21:02)
[2018-01-21] MEDS: METOPROLOL TARTRATE 25 MG TABLET (FP) PO SCH ×2 (09:35→21:02)
[2018-01-21] MEDS: PRENATAL VITAMINS W/ FOLIC ACID TABLET (FP) PO SCH (09:36)
[2018-01-21] MEDS: ASPIRIN COATED 81 MG TABLET.EC PO SCH (09:36)
[2018-01-21] MEDS: APIXABAN 5 MG TABLET PO SCH ×2 (09:36→21:01)
[2018-01-21] MEDS: DIVALPROEX 500 MG, DIVALPROEX 250 MG PO SCH ×2 (09:36→21:01)
[2018-01-21] MEDS: buPROPion HCL 75 MG TABLET PO SCH ×2 (09:36→13:43)
[2018-01-21] MEDS: QUEtiapine FUMARATE 50 MG TABLET PO SCH (21:01)
[2018-01-21] MEDS: THIAMINE HCL 100 MG TABLET (FP) PO SCH (21:01)
[2018-01-22] MEDS: DOCUSATE SODIUM 100 MG CAPSULE (FP) PO SCH ×3 (06:28→21:20)
[2018-01-22] MEDS ORDERED: BUPRENORPHINE/NALOXONE 8 MG/2 MG FILM PACKET ONE ×3 (08:22→20:25)
[2018-01-22] MEDS ORDERED: BUPRENORPHINE/NALOXONE 2 MG/0.5 MG FILM PACKET ONE ×3 (08:22→20:24)
[2018-01-22] MEDS ORDERED: DIVALPROEX SODIUM 500 MG TABLET E.C. ONE ×2 (08:23→20:25)
[2018-01-22] MEDS ORDERED: DIVALPROEX SODIUM 250 MG TABLET E.C. ONE ×2 (08:23→20:25)
[2018-01-22] MEDS: BUPRENORPHINE/NALOXONE 1 EACH, BUPRENORPHINE/NALOXONE 1 EACH SL SCH ×3 (09:59→21:22)
[2018-01-22] MEDS: DIVALPROEX 500 MG, DIVALPROEX 250 MG PO SCH ×2 (10:00→21:20)
[2018-01-22] MEDS: buPROPion HCL 75 MG TABLET PO SCH ×2 (10:00→13:09)
[2018-01-22] MEDS: ASPIRIN COATED 81 MG TABLET.EC PO SCH (10:00)
[2018-01-22] MEDS: METOPROLOL TARTRATE 25 MG TABLET (FP) PO SCH ×2 (10:00→21:22)
[2018-01-22] MEDS: PRENATAL VITAMINS W/ FOLIC ACID TABLET (FP) PO SCH (10:00)
[2018-01-22] MEDS: APIXABAN 5 MG TABLET PO SCH ×2 (10:00→21:20)
--- NOTE | 2018-01-22 15:10 | PN ---
Psychiatric Progress Note Vital Signs: Vital Signs Period Temp Pulse Resp BP Sys/Hurtado Pulse Ox Last 24 Hr 98.4 F 98-112 16-18 90-93/50-63 Date of Session: 01/22/18 Chief Complaint:: I have difficulties to fall asleep.still nervious. HPI: Cociane,Opioid dependence comorbid with Bipolar disorder. ROS: H/O Endocarditis. Current Medications: Active Medications Generic Name Dose Route Start Last Admin Trade Name Freq PRN Reason Stop Dose Admin Acetaminophen 650 mg 01/01/18 22:15 Tylenol - PO Q4H PRN MODERATE PAIN Al Hydroxide/Mg Hydroxide 30 ml 01/01/18 22:15 Mylanta Oral Suspension - PO Q6H PRN DYSPEPSIA Apixaban 5 mg 01/02/18 10:00 01/22/18 10:00 Eliquis - PO 5 mg BID SUNITA Administration Aspirin 81 mg 01/02/18 10:00 01/22/18 10:00 Ecotrin - PO 81 mg DAILY SUNITA Administration Buprenorphine/Naloxone 1 each/ 2 each 01/06/18 09:00 01/22/18 14:14 Buprenorphine/Naloxone 1 each SL 2 each TID@0900,1500,2200 SUNITA Administration Bupropion HCl 150 mg 01/14/18 10:00 01/22/18 13:09 Wellbutrin - PO 150 mg BID@1000,1400 SUNITA Administration Colloidal Oatmeal 1 applic 01/11/18 14:05 01/12/18 15:00 Aveeno Soap - TP 1 applic DAILY PRN Administration HYGEINE Divalproex Sodium 500 mg/ 750 mg 01/04/18 10:00 01/22/18 10:00 Divalproex Sodium 250 mg PO 750 mg BID SUNITA Administration Docusate Sodium 100 mg 01/02/18 06:00 01/22/18 13:09 Colace - PO 100 mg TID SUNITA Administration Eucalyptus/Menthol/Phenol/Sorbitol 1 each 01/01/18 22:15 Cepastat Lozenge - MM Q4H PRN SORE THROAT Guaifenesin 10 ml 01/01/18 22:15 Robitussin Dm - PO Q6H PRN COUGH Loperamide HCl 4 mg 01/01/18 22:15 Imodium - PO Q6H PRN DIARRHEA Magnesium Citrate 300 ml 01/01/18 22:15 Citroma - PO Q48H PRN CONSTIPATION Magnesium Hydroxide 30 ml 01/01/18 22:15 Milk Of Magnesia - PO DAILY PRN CONSTIPATION Melatonin 5 mg 01/01/18 22:00 Melatonin PO HS PRN INSOMNIA Metoprolol Tartrate 12.5 mg 01/01/18 22:00 01/22/18 10:00 Lopressor - PO Not Given BID SUNITA Multivit/Folic Acid/Iron 1 tab 01/02/18 10:00 01/22/18 10:00 Vitamins (Sjr) - PO 1 tab DAILY SUNITA Administration Pseudoephedrine/Triprolidine 1 combo 01/01/18 22:15 Actifed - PO TID PRN NASAL CONGESTION Quetiapine Fumarate 100 mg 01/22/18 15:03 Seroquel - PO HS SUNITA Thiamine HCl 100 mg 01/02/18 22:00 01/21/18 21:01 Vitamin B1 - PO 100 mg HS SUNITA Administration Current Side Effect: No Lab tests ordered: No Lab tests reviewed: Yes Provider note:: Chart was revuuewed,labs noticed,patient was seeen in my office to address ongoing sleeping difficulties.She reports that she is still anxious, and unable to fall asleep as well as stay in sleep.Properties of Seroquel has been discussed with the patient.Seroquel 50 mg po hs will be adjusted to 100 mg po hs.Continue Depakote 750 mg po bid,Wellbutrin 150 mg po bid. Supportive therapy provided. Mental Status Exam - Mental Status Exam Alert and Oriented to: Time, Place, Person Cognitive Function: Grossly Intact Patient Appearance: Unkempt Mood: Anxious Affect: Mood Congruent, Labile Patient Behavior: Cooperative Speech Pattern: Clear Voice Loudness: Normal Thought Process: Goal Oriented Thought Disorder: Not Present Hallucinations: Denies Suicidal Ideation: Denies Homicidal Ideation: Denies Insight/Judgement: Fair Sleep: Difficulty falling asleep Appetite: Fair Muscle strength/Tone: Normal Gait/Station: Normal Psychiatric Treatment Plan - Problem List (1) Hx of seizure disorder Current Visit: Yes (2) Buprenorphine dependence Current Visit: Yes (3) Cocaine dependence in remission Current Visit: Yes (4) History of heart valve replacement Current Visit: Yes (5) History of endocarditis Current Visit: Yes (6) Opioid dependence Current Visit: Yes (7) Bipolar II disorder Current Visit: Yes (8) Underweight due to inadequate caloric intake Current Visit: Yes
[2018-01-22] MEDS: QUEtiapine FUMARATE 100 MG TABLET (FP) PO SCH (21:20)
[2018-01-22] MEDS: THIAMINE HCL 100 MG TABLET (FP) PO SCH (21:20)
[2018-01-23] MEDS: DOCUSATE SODIUM 100 MG CAPSULE (FP) PO SCH ×3 (07:25→21:02)
[2018-01-23] MEDS ORDERED: DIVALPROEX SODIUM 250 MG TABLET E.C. ONE ×2 (08:51→19:31)
[2018-01-23] MEDS ORDERED: DIVALPROEX SODIUM 500 MG TABLET E.C. ONE ×2 (08:51→19:30)
[2018-01-23] MEDS ORDERED: BUPRENORPHINE/NALOXONE 2 MG/0.5 MG FILM PACKET ONE ×3 (09:07→21:02)
[2018-01-23] MEDS ORDERED: BUPRENORPHINE/NALOXONE 8 MG/2 MG FILM PACKET ONE ×3 (09:07→21:03)
[2018-01-23] MEDS: PRENATAL VITAMINS W/ FOLIC ACID TABLET (FP) PO SCH (09:28)
[2018-01-23] MEDS: ASPIRIN COATED 81 MG TABLET.EC PO SCH (09:28)
[2018-01-23] MEDS: DIVALPROEX 500 MG, DIVALPROEX 250 MG PO SCH ×2 (09:28→21:01)
[2018-01-23] MEDS: APIXABAN 5 MG TABLET PO SCH ×2 (09:28→21:01)
[2018-01-23] MEDS: buPROPion HCL 75 MG TABLET PO SCH ×2 (09:28→13:48)
[2018-01-23] MEDS: METOPROLOL TARTRATE 25 MG TABLET (FP) PO SCH ×2 (09:29→21:00)
[2018-01-23] MEDS: BUPRENORPHINE/NALOXONE 1 EACH, BUPRENORPHINE/NALOXONE 1 EACH SL SCH ×3 (09:29→21:03)
[2018-01-23] MEDS: QUEtiapine FUMARATE 100 MG TABLET (FP) PO SCH (21:01)
[2018-01-23] MEDS: THIAMINE HCL 100 MG TABLET (FP) PO SCH (21:01)
[2018-01-24] MEDS: DOCUSATE SODIUM 100 MG CAPSULE (FP) PO SCH ×3 (06:21→21:27)
[2018-01-24] MEDS ORDERED: DIVALPROEX SODIUM 500 MG TABLET E.C. ONE ×2 (08:21→19:24)
[2018-01-24] MEDS ORDERED: DIVALPROEX SODIUM 250 MG TABLET E.C. ONE ×2 (08:21→19:25)
[2018-01-24] MEDS ORDERED: BUPRENORPHINE/NALOXONE 2 MG/0.5 MG FILM PACKET ONE ×3 (08:53→21:26)
[2018-01-24] MEDS ORDERED: BUPRENORPHINE/NALOXONE 8 MG/2 MG FILM PACKET ONE ×3 (08:54→21:27)
[2018-01-24] MEDS: DIVALPROEX 500 MG, DIVALPROEX 250 MG PO SCH ×2 (09:38→21:29)
[2018-01-24] MEDS: PRENATAL VITAMINS W/ FOLIC ACID TABLET (FP) PO SCH (09:38)
[2018-01-24] MEDS: buPROPion HCL 75 MG TABLET PO SCH ×2 (09:38→14:12)
[2018-01-24] MEDS: BUPRENORPHINE/NALOXONE 1 EACH, BUPRENORPHINE/NALOXONE 1 EACH SL SCH ×3 (09:39→21:27)
[2018-01-24] MEDS: ASPIRIN COATED 81 MG TABLET.EC PO SCH (09:39)
[2018-01-24] MEDS: APIXABAN 5 MG TABLET PO SCH ×2 (09:39→21:29)
[2018-01-24] MEDS: METOPROLOL TARTRATE 25 MG TABLET (FP) PO SCH ×2 (09:41→21:28)
[2018-01-24] MEDS: QUEtiapine FUMARATE 100 MG TABLET (FP) PO SCH (21:29)
[2018-01-24] MEDS: THIAMINE HCL 100 MG TABLET (FP) PO SCH (21:29)
[2018-01-24] MEDS ORDERED: PT OWN MED DRAWER 7, Y5N ONE (22:00)
[2018-01-25] MEDS: DOCUSATE SODIUM 100 MG CAPSULE (FP) PO SCH ×3 (06:42→21:00)
[2018-01-25] MEDS ORDERED: BUPRENORPHINE/NALOXONE 2 MG/0.5 MG FILM PACKET ONE (08:54)
[2018-01-25] MEDS ORDERED: DIVALPROEX SODIUM 250 MG TABLET E.C. ONE ×2 (08:55→19:38)
[2018-01-25] MEDS ORDERED: DIVALPROEX SODIUM 500 MG TABLET E.C. ONE ×2 (08:55→19:37)
[2018-01-25] MEDS ORDERED: BUPRENORPHINE/NALOXONE 8 MG/2 MG FILM PACKET ONE (08:55)
[2018-01-25] MEDS: PRENATAL VITAMINS W/ FOLIC ACID TABLET (FP) PO SCH (09:45)
[2018-01-25] MEDS: buPROPion HCL 75 MG TABLET PO SCH ×2 (09:45→13:43)
[2018-01-25] MEDS: DIVALPROEX 500 MG, DIVALPROEX 250 MG PO SCH ×2 (09:45→20:59)
[2018-01-25] MEDS: APIXABAN 5 MG TABLET PO SCH ×2 (09:45→21:00)
[2018-01-25] MEDS: BUPRENORPHINE/NALOXONE 1 EACH, BUPRENORPHINE/NALOXONE 1 EACH SL SCH (09:46)
[2018-01-25] MEDS: METOPROLOL TARTRATE 25 MG TABLET (FP) PO SCH ×2 (09:48→21:01)
[2018-01-25] MEDS: ASPIRIN COATED 81 MG TABLET.EC PO SCH (09:48)
--- NOTE | 2018-01-25 14:29 | PN ---
S Progress Note Note: Vital Signs Temperature 97.7 F 01/25/18 06:57 Pulse Rate 102 H 01/25/18 09:20 Respiratory Rate 18 01/25/18 06:57 Blood Pressure 95/62 01/25/18 09:20 O2 Sat by Pulse Oximetry (%) buprenorphine-naloxone 8-2 mg sl tablet TID and buprenorphine-naloxone 2-0.5 mg sl tablet TID + 10mg TID dose renewal
[2018-01-25] MEDS: BUPRENORPHINE/NALOXONE 8 MG/2 MG FILM PACKET SL SCH ×2 (15:41→21:01)
[2018-01-25] MEDS: BUPRENORPHINE/NALOXONE 2 MG/0.5 MG FILM PACKET SL SCH ×2 (15:41→21:01)
[2018-01-25] MEDS: COLLOIDAL OATMEAL 1 BAR EACH TP PRN (17:27)
[2018-01-25] MEDS: QUEtiapine FUMARATE 100 MG TABLET (FP) PO SCH (20:59)
[2018-01-25] MEDS: THIAMINE HCL 100 MG TABLET (FP) PO SCH (21:00)
[2018-01-26] MEDS: DOCUSATE SODIUM 100 MG CAPSULE (FP) PO SCH ×3 (06:22→21:07)
[2018-01-26] MEDS ORDERED: BUPRENORPHINE/NALOXONE 2 MG/0.5 MG FILM PACKET ONE ×3 (08:26→19:44)
[2018-01-26] MEDS ORDERED: BUPRENORPHINE/NALOXONE 8 MG/2 MG FILM PACKET ONE ×3 (08:27→19:44)
[2018-01-26] MEDS ORDERED: DIVALPROEX SODIUM 500 MG TABLET E.C. ONE ×2 (08:27→19:45)
[2018-01-26] MEDS ORDERED: DIVALPROEX SODIUM 250 MG TABLET E.C. ONE ×2 (08:27→19:45)
[2018-01-26] MEDS: DIVALPROEX 500 MG, DIVALPROEX 250 MG PO SCH ×2 (09:57→21:07)
[2018-01-26] MEDS: ASPIRIN COATED 81 MG TABLET.EC PO SCH (09:57)
[2018-01-26] MEDS: buPROPion HCL 75 MG TABLET PO SCH ×2 (09:57→14:04)
[2018-01-26] MEDS: APIXABAN 5 MG TABLET PO SCH ×2 (09:57→21:07)
[2018-01-26] MEDS: PRENATAL VITAMINS W/ FOLIC ACID TABLET (FP) PO SCH (09:57)
[2018-01-26] MEDS: METOPROLOL TARTRATE 25 MG TABLET (FP) PO SCH ×2 (09:58→21:08)
[2018-01-26] MEDS: BUPRENORPHINE/NALOXONE 1 EACH, BUPRENORPHINE/NALOXONE 1 EACH SL SCH ×3 (10:15→21:08)
[2018-01-26] MEDS: QUEtiapine FUMARATE 100 MG TABLET (FP) PO SCH (21:07)
[2018-01-26] MEDS: THIAMINE HCL 100 MG TABLET (FP) PO SCH (21:07)
[2018-01-27] MEDS: DOCUSATE SODIUM 100 MG CAPSULE (FP) PO SCH ×3 (06:40→21:28)
[2018-01-27] MEDS ORDERED: BUPRENORPHINE/NALOXONE 2 MG/0.5 MG FILM PACKET ONE ×3 (08:51→19:34)
[2018-01-27] MEDS ORDERED: DIVALPROEX SODIUM 250 MG TABLET E.C. ONE ×2 (08:52→19:36)
[2018-01-27] MEDS ORDERED: DIVALPROEX SODIUM 500 MG TABLET E.C. ONE ×2 (08:52→19:36)
[2018-01-27] MEDS ORDERED: BUPRENORPHINE/NALOXONE 8 MG/2 MG FILM PACKET ONE ×3 (08:52→19:35)
[2018-01-27] MEDS: BUPRENORPHINE/NALOXONE 1 EACH, BUPRENORPHINE/NALOXONE 1 EACH SL SCH ×3 (08:56→21:30)
[2018-01-27] MEDS: METOPROLOL TARTRATE 25 MG TABLET (FP) PO SCH ×2 (09:41→21:29)
[2018-01-27] MEDS: APIXABAN 5 MG TABLET PO SCH ×2 (09:41→21:29)
[2018-01-27] MEDS: PRENATAL VITAMINS W/ FOLIC ACID TABLET (FP) PO SCH (09:41)
[2018-01-27] MEDS: buPROPion HCL 75 MG TABLET PO SCH ×2 (09:42→13:58)
[2018-01-27] MEDS: ASPIRIN COATED 81 MG TABLET.EC PO SCH (09:42)
[2018-01-27] MEDS: DIVALPROEX 500 MG, DIVALPROEX 250 MG PO SCH ×2 (09:42→21:28)
[2018-01-27] MEDS: THIAMINE HCL 100 MG TABLET (FP) PO SCH (21:28)
[2018-01-27] MEDS: QUEtiapine FUMARATE 100 MG TABLET (FP) PO SCH (21:29)
[2018-01-28] MEDS: DOCUSATE SODIUM 100 MG CAPSULE (FP) PO SCH ×3 (06:13→21:23)
[2018-01-28] MEDS ORDERED: BUPRENORPHINE/NALOXONE 2 MG/0.5 MG FILM PACKET ONE ×3 (08:49→20:01)
[2018-01-28] MEDS ORDERED: BUPRENORPHINE/NALOXONE 8 MG/2 MG FILM PACKET ONE ×3 (08:50→20:01)
[2018-01-28] MEDS ORDERED: DIVALPROEX SODIUM 250 MG TABLET E.C. ONE ×2 (08:50→20:03)
[2018-01-28] MEDS ORDERED: DIVALPROEX SODIUM 500 MG TABLET E.C. ONE ×2 (08:50→20:03)
[2018-01-28] MEDS: BUPRENORPHINE/NALOXONE 1 EACH, BUPRENORPHINE/NALOXONE 1 EACH SL SCH ×3 (08:53→21:23)
[2018-01-28] MEDS: PRENATAL VITAMINS W/ FOLIC ACID TABLET (FP) PO SCH (10:06)
[2018-01-28] MEDS: ASPIRIN COATED 81 MG TABLET.EC PO SCH (10:07)
[2018-01-28] MEDS: buPROPion HCL 75 MG TABLET PO SCH ×2 (10:07→14:11)
[2018-01-28] MEDS: APIXABAN 5 MG TABLET PO SCH ×2 (10:07→21:23)
[2018-01-28] MEDS: METOPROLOL TARTRATE 25 MG TABLET (FP) PO SCH ×2 (10:07→21:25)
[2018-01-28] MEDS: DIVALPROEX 500 MG, DIVALPROEX 250 MG PO SCH ×2 (10:07→21:23)
--- NOTE | 2018-01-28 15:22 | PN ---
[facility] Progress Note Note: Vital Signs Temperature 97.7 F 01/28/18 06:34 Pulse Rate 103 H 01/28/18 09:16 Respiratory Rate 18 01/28/18 06:34 Blood Pressure 93/59 01/28/18 09:16 O2 Sat by Pulse Oximetry (%) Patient schedule to complete program 01/29/18. Patient will be going to [facility]. Patient reports she does not need refills on her medications she has medications in her property including suboxone. Patient to follow up with primary care provider 1-2 weeks. Patient in stable condition.
[2018-01-28] MEDS: QUEtiapine FUMARATE 100 MG TABLET (FP) PO SCH (21:23)
[2018-01-28] MEDS: THIAMINE HCL 100 MG TABLET (FP) PO SCH (21:23)
[2018-01-29] MEDS: DOCUSATE SODIUM 100 MG CAPSULE (FP) PO SCH (06:09)
[2018-01-29 07:03] VITALS: TEMP 98
--- NOTE | 2018-01-29 08:36 | PN ---
Psychiatric Progress Note Vital Signs: Vital Signs Period Temp Pulse Resp BP Sys/Hurtado Pulse Ox Last 24 Hr 98.0 F 91-103 17-18 85-93/53-59 Date of Session: 01/29/18 Chief Complaint:: Discharge visit HPI: Patient addressed Opioid,Cociane dependence comorbid with Bipolar II disorder. ROS: Significant for history of Endocatditis with heart valve replacement,H/O Seizures. Current Medications: Active Medications Generic Name Dose Route Start Last Admin Trade Name Freq PRN Reason Stop Dose Admin Acetaminophen 650 mg 01/01/18 22:15 Tylenol - PO Q4H PRN MODERATE PAIN Al Hydroxide/Mg Hydroxide 30 ml 01/01/18 22:15 Mylanta Oral Suspension - PO Q6H PRN DYSPEPSIA Apixaban 5 mg 01/02/18 10:00 01/28/18 21:23 Eliquis - PO 5 mg BID SUNITA Administration Aspirin 81 mg 01/02/18 10:00 01/28/18 10:07 Ecotrin - PO 81 mg DAILY SUNITA Administration Buprenorphine/Naloxone 1 each/ 2 each 01/26/18 09:00 01/28/18 21:23 Buprenorphine/Naloxone 1 each SL 2 each 0900,1500,2200 SUNITA Administration Bupropion HCl 150 mg 01/14/18 10:00 01/28/18 14:11 Wellbutrin - PO 150 mg BID@1000,1400 SUNITA Administration Colloidal Oatmeal 1 applic 01/11/18 14:05 01/25/18 17:27 Aveeno Soap - TP 1 applic DAILY PRN Administration HYGEINE Divalproex Sodium 500 mg/ 750 mg 01/04/18 10:00 01/28/18 21:23 Divalproex Sodium 250 mg PO 750 mg BID SUNITA Administration Docusate Sodium 100 mg 01/02/18 06:00 01/29/18 06:09 Colace - PO Not Given TID SUNITA Eucalyptus/Menthol/Phenol/Sorbitol 1 each 01/01/18 22:15 Cepastat Lozenge - MM Q4H PRN SORE THROAT Guaifenesin 10 ml 01/01/18 22:15 Robitussin Dm - PO Q6H PRN COUGH Loperamide HCl 4 mg 01/01/18 22:15 Imodium - PO Q6H PRN DIARRHEA Magnesium Citrate 300 ml 01/01/18 22:15 Citroma - PO Q48H PRN CONSTIPATION Magnesium Hydroxide 30 ml 01/01/18 22:15 Milk Of Magnesia - PO DAILY PRN CONSTIPATION Melatonin 5 mg 01/01/18 22:00 Melatonin PO HS PRN INSOMNIA Metoprolol Tartrate 12.5 mg 01/01/18 22:00 01/28/18 21:25 Lopressor - PO 12.5 mg BID SUNITA Administration Multivit/Folic Acid/Iron 1 tab 01/02/18 10:00 01/28/18 10:06 Vitamins (Sjr) - PO 1 tab DAILY SUNITA Administration Pseudoephedrine/Triprolidine 1 combo 01/01/18 22:15 Actifed - PO TID PRN NASAL CONGESTION Quetiapine Fumarate 100 mg 01/22/18 22:00 01/28/18 21:23 Seroquel - PO 100 mg HS SUNITA Administration Thiamine HCl 100 mg 01/02/18 22:00 01/28/18 21:23 Vitamin B1 - PO 100 mg HS SUNITA Administration Current Side Effect: No Lab tests ordered: No Lab tests reviewed: Yes Provider note:: Patient completed this program today.She has met her treatment goals and will continue to address her issues on outpatient basis at [facility]. Patient identifies areas of difficulties,behaviors which contribute to relapse.Supportive therapy provided focusing on relapse prevention ,coping skills,support utilization as well as other resourses to maintain recovery has been discussed with the patient.Patient will continue current medications as per plan:Depakote 750 mg po bid,Seroquel 100 mg po hs and Neurontin 600 mg po tid.Scripts for 30 days provided. Patient is stable for discharge. Total face to face time:: 30 Mental Status Exam - Mental Status Exam Alert and Oriented to: Time, Place, Person Cognitive Function: Grossly Intact Patient Appearance: Well Groomed Mood: Hopeful, Euthymic Affect: Appropriate, Mood Congruent Patient Behavior: Cooperative Speech Pattern: Clear Voice Loudness: Normal Thought Process: Goal Oriented Thought Disorder: Not Present Hallucinations: Denies Suicidal Ideation: Denies Homicidal Ideation: Denies Insight/Judgement: Fair Sleep: Fair Appetite: Fair Muscle strength/Tone: Normal Gait/Station: Normal Psychiatric Treatment Plan - Problem List (1) Hx of seizure disorder Current Visit: Yes (2) Buprenorphine dependence Current Visit: Yes (3) Cocaine dependence in remission Current Visit: Yes (4) History of heart valve replacement Current Visit: Yes (5) History of endocarditis Current Visit: Yes (6) Opioid dependence Current Visit: Yes (7) Bipolar II disorder Current Visit: Yes (8) Underweight due to inadequate caloric intake Current Visit: Yes
[2018-01-29] MEDS ORDERED: BUPRENORPHINE/NALOXONE 2 MG/0.5 MG FILM PACKET ONE (08:38)
[2018-01-29] MEDS ORDERED: BUPRENORPHINE/NALOXONE 8 MG/2 MG FILM PACKET ONE (08:39)
[2018-01-29] MEDS ORDERED: DIVALPROEX SODIUM 250 MG TABLET E.C. ONE (08:39)
[2018-01-29] MEDS ORDERED: DIVALPROEX SODIUM 500 MG TABLET E.C. ONE (08:39)
[2018-01-29] MEDS: DIVALPROEX 500 MG, DIVALPROEX 250 MG PO SCH (09:08)
[2018-01-29] MEDS: APIXABAN 5 MG TABLET PO SCH (09:08)
[2018-01-29] MEDS: PRENATAL VITAMINS W/ FOLIC ACID TABLET (FP) PO SCH (09:08)
[2018-01-29] MEDS: BUPRENORPHINE/NALOXONE 1 EACH, BUPRENORPHINE/NALOXONE 1 EACH SL SCH (09:08)
[2018-01-29] MEDS: buPROPion HCL 75 MG TABLET PO SCH (09:08)
[2018-01-29] MEDS: ASPIRIN COATED 81 MG TABLET.EC PO SCH (09:10)
[2018-01-29] MEDS: METOPROLOL TARTRATE 25 MG TABLET (FP) PO SCH (09:10)
[2018-01-29 09:23] VITALS: BP 90/56; PULSE 102
== END 2018-01-29 09:26 | disposition home or self-care (01) | DRG 772 ==
LOC: YASAS 18:23 → Y3E 20:23
PROVIDERS: ADMIT Psychiatry & Neurology Psychiatry; ATTEND Psychiatry & Neurology Psychiatry
PROC: HZ42ZZZ Group Counseling for Substance Abuse Treatment, Cognitive-Behavioral (ICD-10-PCS; principal; 2018-01-01)
DX: F11.20 Opioid dependence, uncomplicated (principal); F14.20 Cocaine dependence, uncomplicated; F31.81 Bipolar II disorder; R63.6 Underweight; Z68.1 Body mass index [BMI] 19.9 or less, adult; Z79.01 Long term (current) use of anticoagulants; Z79.82 Long term (current) use of aspirin; Z91.013 Allergy to seafood; Z86.69 Personal history of other diseases of the nervous system and sense organs; Z95.2 Presence of prosthetic heart valve; Z86.79 Personal history of other diseases of the circulatory system
CPT/HCPCS: 36415; 80053; 80164; 81003; 85027; 86593; 93005; 93010

== ENCOUNTER 2018-11-23 19:59 | Emergency (ER) | payer OTHER | END 2018-11-23 22:47 | disposition short-term general hospital (02) | LOC: JER 19:59 ==

== ENCOUNTER 2018-11-23 23:37 | Inpatient (IN) | payer OTHER ==
[2018-11-24 00:45] VITALS: BMI 18.3
--- NOTE | 2018-11-24 01:13 | HP ---
CIWA Score Nausea/Vomitin-Mild Nausea/No Vomiting Muscle Tremors: 4-Moderate,w/Arms Extend Anxiety: 3 Agitation: 4-Moderately Restless Paroxysmal Sweats: 2 Orientation: 0-Oriented Tacttile Disturbances: 0-None Auditory Disturbances: 0-None Visual Disturbances: 0-None Headache: 3-Moderate CIWA-Ar Total Score: 17 - Admission Criteria OASAS Guidelines: Admission for Medically Managed Detox: Requires at least one of the followin. CIWA greater than 12 2. Seizures within the past 24 hours 3. Delirium tremens within the past 24 hours 4. Hallucinations within the past 24 hours 5. Acute intervention needed for co occurring medical disorder 6. Acute intervention needed for co occurring psychiatric disorder 7. Severe withdrawal that cannot be handled at a lower level of care (continued vomiting, continued diarrhea, abnormal vital signs) requiring intravenous medication and/or fluids 8. Admission ROS [facility] Chief Complaint: Alcohol withdrawal symptoms, on Methadone therapy Allergies/Adverse Reactions: Allergies Allergy/AdvReac Type Severity Reaction Status Date / Time No Known Drug Allergies Allergy Verified 11/23/18 20:04 shellfish derived Allergy Verified 11/23/18 20:04 History of Present Illness: 33 years olf female with a long history of alcohol dependence is seeking admission to detox. Patient has been in previous detox and reports insignificant period of sobriety. She has history of seizures, depression and endocarditis. She is on methadone 100mg tablet oral daily with [facility] MMTP. Last day medicated was on 11/23/2018. Dose is yet to be confirmed by the nurse. Patient reports that she is no longer taking Eliquis. Exam Limitations: No Limitations - Ebola screening Have you traveled outside of the country in the last 21 days: No (N) Have you had contact with anyone from an Ebola affected area: No Do you have a fever: No - Review of Systems Constitutional: Chills, Loss of Appetite, Malaise, Changes in sleep, Weakness EENT: reports: Sinus Pressure Respiratory: reports: No Symptoms reported Cardiac: reports: No Symptoms Reported GI: reports: Poor Appetite, Poor Fluid Intake, Vomiting, Abdominal cramping : reports: No Symptoms Reported Musculoskeletal: reports: Back Pain Integumentary: reports: Dryness, Flushing Neuro: reports: Headache, Tremors Endocrine: reports: No Symptoms Reported Hematology: reports: No Symptoms Reported Psychiatric: reports: Anxious Other Systems: Reviewed and Negative Patient History - Patient Medical History Hx Asthma: No Hx Chronic Obstructive Pulmonary Disease (COPD): No Hx Cardiac Disorders: Yes (Endocarditis- Eliquis) Hx Hypertension: No Hx Seizures: Yes (3 years ago- Not on medication) Hx Diabetes: No Hx Gastrointestinal Disorders: No Hx Genitourinary Disorders: No Hx Sexually Transmitted Disorders: No Hx Renal Disease (ESRD): No Hx Depression: Yes (Not on medication) Hx Suicide Attempt: No Hx Schizophrenia: No - Patient Surgical History Past Surgical History: Yes Hx Neurologic Surgery: No Hx Cataract Extraction: No Hx Cardiac Surgery: Yes (Heart Valve Replacement 2017) Hx Lung Surgery: No Hx Breast Surgery: No Hx Breast Biopsy: No Hx Abdominal Surgery: No Hx Appendectomy: No Hx Cholecystectomy: No Hx Genitourinary Surgery: No Hx Section: No Hx Orthopedic Surgery: No - PPD History Previous Implant?: Yes Documented Results: Negative w/proof Implanted On Prior [facility] Admission?: Yes Date: 01/03/18 PPD to be Administered?: No - Reproductive History Patient is a Female of Child Bearing Age (11 -55 yrs old): No (male) - Smoking Cessation Smoking history: Former smoker Have you smoked in the past 12 months: No Hx Chewing Tobacco Use: No Initiated information on smoking cessation: No - Substance & Tx. History Hx Alcohol Use: Yes Substance Use Type: Alcohol, Cocaine, Heroin, Marijuana Hx Substance Use Treatment: Yes ([facility]) - Substances abused Heroin Substance route: Inhalation Frequency: Daily Amount used: $40 Age of first use: 23 Date of last use: 11/23/18 Cocaine Substance route: Inhalation Frequency: Daily Amount used: $100 Age of first use: 23 Date of last use: 11/23/18 Alcohol Substance route: Oral Frequency: Daily Amount used: pint of vodka Age of first use: 15 Date of last use: 11/23/18 Family Disease History - Family Disease History Family History: Denies Admission Physical Exam [facility] - Vital Signs Vital Signs: Vital Signs - 24 hr 11/24/18 00:38 Temperature 98.5 F Pulse Rate 99 H Respiratory 18 Rate Blood Pressure 108/75 - Physical General Appearance: Yes: Moderate Distress, Tremorous, Sweating, Anxious HEENTM: Yes: Within Normal Limits Respiratory: Yes: Lungs Clear, Normal Breath Sounds, No Respiratory Distress Neck: Yes: Supple Breast: Yes: Breast Exam Deferred Cardiology: Yes: Tachycardia Abdominal: Yes: Normal Bowel Sounds Genitourinary: Yes: Within Normal Limits Back: Yes: Normal Inspection Musculoskeletal: Yes: Within Normal Limits Extremities: Yes: Normal Capillary Refill 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: 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: No
[2018-11-24] MEDS ORDERED: chlordiazePOXIDE HCL 10 MG CAPSULE PO PRN (01:34)
[2018-11-24] MEDS ORDERED: MAG HYDROX/AL HYDROX/SIMETH 30 ML UNIT-DOSE CUP PO PRN (01:34)
[2018-11-24] MEDS ORDERED: IBUPROFEN 400 MG TABLET (FP) PO PRN (01:34)
[2018-11-24] MEDS ORDERED: BISMUTH SUBSALICYLATE 524 MG/30 ML UD PO PRN (01:34)
[2018-11-24] MEDS ORDERED: ACETAMINOPHEN 325 MG TABLET (FP) PO PRN ×2 (01:34)
[2018-11-24] MEDS ORDERED: METHOCARBAMOL 500 MG TABLET PO PRN (01:34)
[2018-11-24] MEDS ORDERED: MAGNESIUM HYDROX 2400MG/30ML ORAL SUSPENSION 30 ML CUP PO PRN (01:34)
[2018-11-24] MEDS ORDERED: MELATONIN 5 MG TABLETS PO PRN (01:34)
[2018-11-24] MEDS ORDERED: MENTHOL/PHENOL 1 EACH UD MM PRN (01:34)
[2018-11-24] MEDS ORDERED: MAGNESIUM CITRATE 300 ML BOTTLE PO PRN (01:34)
[2018-11-24] MEDS: chlordiazePOXIDE HCL 25 MG CAPSULE PO SCH ×3 (06:49→22:28)
[2018-11-24] MEDS ORDERED: METHADONE HCL 10 MG TABLET PO ONE (08:58)
[2018-11-24] MEDS ORDERED: METHADONE 80 MG, METHADONE 20 MG PO ONE (09:05)
[2018-11-24] MEDS ORDERED: METHADONE HCL 10 MG TABLET ONE (09:16)
[2018-11-24] MEDS ORDERED: METHADONE HCL 40 MG DISPERSABLE TABLET ONE (09:16)
[2018-11-24] MEDS ORDERED: FLUCONAZOLE 100 MG TABLET (UD) PO SCH (10:00)
[2018-11-24] MEDS: METOPROLOL TARTRATE 25 MG TABLET (FP) PO SCH ×2 (10:20→22:08)
[2018-11-24] MEDS: PRENATAL VITAMINS W/ FOLIC ACID TABLET (FP) PO SCH (10:20)
--- NOTE | 2018-11-24 12:01 | PN ---
S CIWA - CIWA Score Nausea/Vomitin-No Nausea/No Vomiting Muscle Tremors: 3 Anxiety: 2 Agitation: 3 Paroxysmal Sweats: 2 Orientation: 0-Oriented Tacttile Disturbances: 0-None Auditory Disturbances: 0-None Visual Disturbances: 0-None Headache: 0-None Present CIWA-Ar Total Score: 10 S Progress Note (SOAP) Subjective: sweats tired body aches mild shakes muscle aches Objective: 11/24/18 12:00 Vital Signs Temperature 98.6 F 11/24/18 08:21 Pulse Rate 89 11/24/18 08:21 Respiratory Rate 16 11/24/18 08:21 Blood Pressure 97/60 11/24/18 08:21 O2 Sat by Pulse Oximetry (%) pending lab results aaox3 lying in bed no acute distress Assessment: 11/24/18 12:01 withdrawal sx Plan: continue detox increase fluids
--- NOTE | 2018-11-24 13:00 | CONSULT ---
[facility] Psychiatric Consult - Data Date of interview: 11/24/18 Admission source: [facility] Identifying data: Readmission to [facility] for this 33 y/o female self- referred for detoxification (alcohol, cannabis, heroin, cocaine). Interviewed at [address] [place] [address]. Patient is single, a mother of four, homeless (long term resident), unemployed and reportedly deprived of income (occasional assistance from relatives). Substance Abuse History: Revisited in this session. Patient confirms continuous use of heroin, cocaine, marihuana and alcohol. Details in [facility] report as follows : Smoking history: Former smoker. Have you smoked in the past 12 months: No. Hx Chewing Tobacco Use: No. Initiated information on smoking cessation: No. - Substance & Tx. History. Hx Alcohol Use: Yes. Substance Use Type: Alcohol, Cocaine, Heroin, Marijuana. Hx Substance Use Treatment: Yes ([facility]). - Substances abused. Heroin. Substance route: Inhalation. Frequency: Daily. Amount used: $40. Age of first use: 23. Date of last use: 11/23/18. Cocaine. Substance route: Inhalation. Frequency: Daily. Amount used: $100. Age of first use: 23. Date of last use: 11/23/18. Alcohol. Substance route : Oral. Frequency: Daily. Amount used: pint of vodka. Age of first use: 15. Date of last use: 11/23/18 Medical History: Remarkable for a history of endocarditis, heart valve replacement (2018), weight loss and withdrawal-related seizures. Psychiatric History: Patient is a poor, mildly sedated historian (falling asleep during this interview). Ms Nugent is, however, able to provide important information about her psychiatric profile. She admits to a long standing history of mental illness (three psychiatric admissions at [facility]). Onset of emotioanal disturbances at age 15. Diagnosed with ADHD, Anxiety Disorder and Bipolar Disorder. Patient is currently on methadone maintenance (100 mg/day) at [facility]. At the same site, she sees a psychiatrist for medication management (wellbutrin + gabapentin + remeron + seroquel).Patient endorses one suicide attempt, 10 years ago, via overdose with medication (zolpidem). Physical/Sexual Abuse/Trauma History: Not discussed. Patient declines. Additional Comment: No toxicology available for review. Mental Status Exam - Mental Status Exam Alert and Oriented to: Place, Person Cognitive Function: Impaired (patient looks tired ; aware of interviewer's identity, place and purpose of conversation) Patient Appearance: Unkempt, Disheveled (thin habitus) Mood: Sad, Nervous, Withdrawn, Irritable Affect: Mood Congruent, Constricted Patient Behavior: Sedated (mildly sedated), Fatigued, Cooperative Speech Pattern: Delayed, Slurred Voice Loudness: Moderately Soft/Quiet Thought Process: Goal Oriented (able to follow directions ) Thought Disorder: Not Present Hallucinations: Denies Suicidal Ideation: Denies Homicidal Ideation: Denies Insight/Judgement: Poor Sleep: Well Appetite: Poor, Weight loss Gait/Station: Other (slow, unsteady) Psychiatric Findings - Problem List ([place] 1, 2,3) (1) Sedated due to medication Current Visit: Yes Status: Acute (2) Alcohol use disorder Current Visit: Yes Status: Chronic (3) Opioid dependence on agonist therapy Current Visit: Yes Status: Chronic (4) Cocaine use disorder Current Visit: Yes Status: Chronic (5) Substance induced mood disorder Current Visit: Yes Status: Chronic (6) History of bipolar disorder Current Visit: Yes Status: Chronic - Initial Treatment Plan Initial Treatment Plan: Psychoeducation deferred until improved cognition. Sleep hygiene. Detoxification. Medications (seroquel, bupropion, depakote) are held due to sedated state. Observation.
--- NOTE | 2018-11-24 15:43 | EKG ---
Test Reason : Blood Pressure : / mmHG Vent. Rate : 096 BPM Atrial Rate : 096 BPM P-R Int : 120 ms QRS Dur : 088 ms QT Int : 380 ms P-R-T Axes : 075 074 094 degrees QTc Int : 480 ms NORMAL SINUS RHYTHM POSSIBLE LEFT ATRIAL ENLARGEMENT T WAVE ABNORMALITY, CONSIDER ANTERIOR ISCHEMIA PROLONGED QT ABNORMAL ECG WHEN COMPARED WITH ECG OF 23-NOV-2018 22:07, NO SIGNIFICANT CHANGE WAS FOUND Confirmed by SUZANNA ZAMORA, JIM ([id number]) on 11/24/2018 3:42:40 PM Referred By: Azeb Chua Confirmed By:JIM BRISENO MD
[2018-11-24] MEDS: THIAMINE HCL 100 MG TABLET (FP) PO SCH (22:08)
[2018-11-24] MEDS ORDERED: METHADONE HCL 10 MG TABLET (FOR DETOX USE ONLY) PO ONE (23:00)
[2018-11-25] MEDS ORDERED: METHADONE HCL 10 MG TABLET ONE (04:51)
[2018-11-25] MEDS ORDERED: METHADONE HCL 40 MG DISPERSABLE TABLET ONE (04:51)
[2018-11-25] MEDS ORDERED: METHADONE HCL 40 MG DISPERSABLE TABLET PO SCH (06:00)
[2018-11-25] MEDS: METHADONE 80 MG, METHADONE 20 MG PO SCH (06:15)
[2018-11-25] MEDS: chlordiazePOXIDE 5 MG CAPSULE PO SCH ×3 (06:15→22:20)
[2018-11-25 09:37] LABS: HEMATOCRIT 35.5 % (32.4-45.2); HEMOGLOBIN 11.8 GM/dL (10.7-15.3); MCH 29.4 pg (25.7-33.7); MCHC 33.4 g/dl (32.0-36.0); MEAN CELL VOLUME 88.2 fl (80-96); MEAN PLT VOLUME 7.6 fl (7.5-11.1); PLATELET COUNT 264 K/MM3 (134-434); RBC 4.02 M/mm3 (3.60-5.2); RDW 14.5 % (11.6-15.6); WHITE BLOOD COUNT 4.6 K/mm3 (4.0-10.0)
[2018-11-25] MEDS ORDERED: METHADONE HCL 5 MG TABLET (FOR DETOX USE ONLY) PO ONE (10:00)
[2018-11-25 10:01] LABS: ALBUMIN 3.2 g/dl (3.4-5.0); BILIRUBIN,TOTAL 0.4 mg/dL (0.2-1); BLOOD UREA NITROGEN 14.5 mg/dL (7-18); CALCIUM 8.5 mg/dL (8.5-10.1); CREATININE 0.8 mg/dL (0.55-1.3); POTASSIUM 4.3 mmol/L (3.5-5.1); TOT PROT 6.1 g/dl (6.4-8.2)
[2018-11-25] MEDS: PRENATAL VITAMINS W/ FOLIC ACID TABLET (FP) PO SCH (10:22)
[2018-11-25] MEDS: FLUCONAZOLE 100 MG TABLET (UD) PO SCH (10:23)
[2018-11-25] MEDS: METOPROLOL TARTRATE 25 MG TABLET (FP) PO SCH ×2 (10:23→22:22)
--- NOTE | 2018-11-25 11:51 | PN ---
S CIWA - CIWA Score Nausea/Vomitin-No Nausea/No Vomiting Muscle Tremors: 3 Anxiety: 2 Agitation: 2 Paroxysmal Sweats: 2 Orientation: 0-Oriented Tacttile Disturbances: 0-None Auditory Disturbances: 0-None Visual Disturbances: 0-None Headache: 0-None Present CIWA-Ar Total Score: 9 S Progress Note (SOAP) Subjective: sweats body aches interrupted sleep agitation Objective: 11/25/18 11:51 Vital Signs Temperature 98.1 F 11/25/18 09:31 Pulse Rate 73 11/25/18 09:31 Respiratory Rate 16 11/25/18 09:31 Blood Pressure 100/68 11/25/18 09:31 O2 Sat by Pulse Oximetry (%) Laboratory Tests 11/25/18 11/25/18 11/25/18 07:30 07:30 07:30 WBC 4.6 RBC 4.02 Hgb 11.8 Hct 35.5 MCV 88.2 MCH 29.4 MCHC 33.4 RDW 14.5 Plt Count 264 MPV 7.6 Sodium 140 Potassium 4.3 Chloride 108 H Carbon Dioxide 27 Anion Gap 5 L BUN 14.5 Creatinine 0.8 Est GFR (CKD-EPI)AfAm 111.48 Est GFR (CKD-EPI)NonAf 96.19 Random Glucose 88 Calcium 8.5 Total Bilirubin 0.4 AST 14 L ALT 24 Alkaline Phosphatase 98 Total Protein 6.1 L Albumin 3.2 L RPR Titer Nonreactive labs noted aaox3 ambulating no acute distress Assessment: 11/25/18 11:51 withdrawal sx Plan: continue detox increase fluids
[2018-11-25] MEDS: THIAMINE HCL 100 MG TABLET (FP) PO SCH (22:19)
[2018-11-26] MEDS ORDERED: METHADONE HCL 40 MG DISPERSABLE TABLET ONE (04:36)
[2018-11-26] MEDS ORDERED: METHADONE HCL 10 MG TABLET ONE (04:36)
[2018-11-26] MEDS ORDERED: chlordiazePOXIDE HCL 10 MG CAPSULE PO PRN (05:00)
[2018-11-26] MEDS: chlordiazePOXIDE HCL 10 MG CAPSULE PO SCH ×3 (05:27→22:17)
[2018-11-26] MEDS: METHADONE 80 MG, METHADONE 20 MG PO SCH (05:27)
[2018-11-26] MEDS ORDERED: METHADONE HCL 10 MG TABLET (FOR DETOX USE ONLY) PO ONE (10:00)
[2018-11-26] MEDS: FLUCONAZOLE 100 MG TABLET (UD) PO SCH (11:17)
[2018-11-26] MEDS: PRENATAL VITAMINS W/ FOLIC ACID TABLET (FP) PO SCH (11:17)
[2018-11-26] MEDS: METOPROLOL TARTRATE 25 MG TABLET (FP) PO SCH ×2 (11:17→22:17)
--- NOTE | 2018-11-26 12:11 | PN ---
S CIWA - CIWA Score Nausea/Vomitin-No Nausea/No Vomiting Muscle Tremors: 2 Anxiety: 1-Mildly Anxious Agitation: 1-Slight > Activity Paroxysmal Sweats: No Perspiration Orientation: 0-Oriented Tacttile Disturbances: 0-None Auditory Disturbances: 0-None Visual Disturbances: 0-None Headache: 0-None Present CIWA-Ar Total Score: 4 BHS Progress Note (SOAP) Subjective: feeling better little sweats Objective: 11/26/18 12:11 Vital Signs Temperature 98.2 F 11/26/18 10:00 Pulse Rate 69 11/26/18 10:00 Respiratory Rate 18 11/26/18 10:00 Blood Pressure 93/56 L 11/26/18 10:00 O2 Sat by Pulse Oximetry (%) aaox3 ambulating no acute distress Assessment: 11/26/18 12:11 mild withdrawal sx Plan: continue detox increase fluids d/c in am
[2018-11-26] MEDS: THIAMINE HCL 100 MG TABLET (FP) PO SCH (22:17)
[2018-11-27] MEDS ORDERED: METHADONE HCL 10 MG TABLET ONE (04:49)
[2018-11-27] MEDS ORDERED: METHADONE HCL 40 MG DISPERSABLE TABLET ONE (04:50)
[2018-11-27] MEDS ORDERED: METHADONE HCL 5 MG TABLET (FOR DETOX USE ONLY) PO ONE (06:00)
[2018-11-27] MEDS: chlordiazePOXIDE HCL 10 MG CAPSULE PO SCH (06:40)
[2018-11-27] MEDS: METHADONE 80 MG, METHADONE 20 MG PO SCH (06:40)
[2018-11-27] MEDS: PRENATAL VITAMINS W/ FOLIC ACID TABLET (FP) PO SCH (09:19)
[2018-11-27] MEDS: FLUCONAZOLE 100 MG TABLET (UD) PO SCH (09:19)
[2018-11-27] MEDS: METOPROLOL TARTRATE 25 MG TABLET (FP) PO SCH (09:20)
[2018-11-27 09:59] VITALS: BP 100/60; PULSE 77; TEMP 96.9
--- NOTE | 2018-11-27 14:53 | DS ---
[facility] Detox Discharge Summary Admission Date: 11/24/18 Discharge Date: 11/27/18 - History Present History: Alcohol Dependence, Cocaine Dependence, MMTP - Physical Exam Results Vital Signs: Vital Signs Temperature 96.9 F L 11/27/18 09:58 Pulse Rate 77 11/27/18 09:58 Respiratory Rate 17 11/27/18 09:58 Blood Pressure 100/60 11/27/18 09:58 O2 Sat by Pulse Oximetry (%) - Treatment Hospital Course: Detox Protocol Followed, Detoxed Safely, Responded well, Discharged Condition Good, Rehab Referral Accepted Patient has Accepted a Rehab Ref[facility] to: [facility] - Medication Discharge Medications: Ambulatory Orders Apixaban [Eliquis] 5 mg PO BID 01/01/18 Aspirin [Ecotrin] 81 mg PO DAILY 01/01/18 Buprenorphine HCl/Naloxone HCl [Suboxone 8 mg-2 mg Sl Tablets] 1 each SL TID Buprenorphine/Naloxone [Suboxone 2Mg/0.5MG Sl Film -] 1 each SL TID 01/01/18 Divalproex Sodium [Depakote] 750 mg PO BID 01/01/18 Docusate Sodium [Colace] 100 mg PO TID 01/01/18 Fluconazole [Diflucan -] 200 mg PO DAILY 01/01/18 Gabapentin [Neurontin] 600 mg PO TID 01/01/18 Metoprolol Tartrate 12.5 mg PO BID 01/01/18 Bupropion HCl [Wellbutrin -] 150 mg PO BID@1000,1400 #120 tablet 01/29/18 Quetiapine Fumarate [Seroquel] 100 mg PO HS #30 tablet 01/29/18 Divalproex [Depakote -] 750 mg PO BID 11/24/18
== END 2018-11-27 12:52 | disposition other institution (70) | DRG 773 ==
LOC: YASAS 23:37 → Y6N 11-24 01:16
PROVIDERS: ADMIT Surgery; ATTEND Surgery
PROC: HZ2ZZZZ Detoxification Services for Substance Abuse Treatment (ICD-10-PCS; principal; 2018-11-24)
DX: F10.230 Alcohol dependence with withdrawal, uncomplicated (principal); F11.20 Opioid dependence, uncomplicated; F14.20 Cocaine dependence, uncomplicated; F19.24 Other psychoactive substance dependence with psychoactive substance-induced mood disorder; F41.9 Anxiety disorder, unspecified; F31.9 Bipolar disorder, unspecified; F90.9 Attention-deficit hyperactivity disorder, unspecified type; R40.4 Transient alteration of awareness; Z86.69 Personal history of other diseases of the nervous system and sense organs; Z86.79 Personal history of other diseases of the circulatory system; Z79.01 Long term (current) use of anticoagulants; Z91.013 Allergy to seafood
CPT/HCPCS: 36415; 80053; 85027; 86593; 93005; 93010

== ENCOUNTER 2018-11-27 14:14 | Inpatient (IN) | payer OTHER ==
[~2018-11-27 14:14] MED LIST: ACETAMINOPHEN 325 MG TABLET (FP) PO PRN; IBUPROFEN 400 MG TABLET (FP) PO PRN; LOPERAMIDE HCL 2 MG CAPSULE PO PRN; MAG HYDROX/AL HYDROX/SIMETH 30 ML UNIT-DOSE CUP PO PRN; MAGNESIUM CITRATE 300 ML BOTTLE PO PRN; MAGNESIUM HYDROX 2400MG/30ML ORAL SUSPENSION 30 ML CUP PO PRN; MENTHOL/PHENOL 1 EACH UD MM PRN; P-EPHED 60MG/TRIPROLIDI 2.5MG TABLET PO PRN; guaiFENesin 200 MG/10 ML 10 ML UNIT-DOSE CUPS PO PRN
[2018-11-27] MEDS: metoPROLOL SUCCINATE 25 MG TAB.SR.24H (FP) PO SCH (21:30)
[2018-11-27] MEDS: THIAMINE HCL 100 MG TABLET (FP) PO SCH (21:30)
[2018-11-27] MEDS ORDERED: MELATONIN 5 MG TABLETS PO PRN (22:00)
[2018-11-28] MEDS ORDERED: METHADONE HCL 5 MG TABLET PO SCH ×2 (06:00)
[2018-11-28] MEDS: METHADONE 80 MG, METHADONE 20 MG PO SCH (06:35)
[2018-11-28] MEDS ORDERED: METHADONE HCL 10 MG TABLET ONE (06:35)
[2018-11-28] MEDS ORDERED: METHADONE HCL 40 MG DISPERSABLE TABLET ONE (06:35)
[2018-11-28] MEDS ORDERED: PT OWN MED DRAWER 7, Y5N ONE ×2 (08:22→19:56)
[2018-11-28] MEDS: metoPROLOL SUCCINATE 25 MG TAB.SR.24H (FP) PO SCH ×2 (09:47→21:36)
[2018-11-28] MEDS: PRENATAL VITAMINS W/ FOLIC ACID TABLET (FP) PO SCH (09:49)
--- NOTE | 2018-11-28 15:17 | PN ---
[facility] Progress Note Note: Psychiatrist correctional case manager note Called by nursing staff to order medications for patient admitted from detox yesterday. Patient was seen by Dr Lindsey on 11/24/18 while in detox. According to Dr Lindsey' note patient was too sedated to be continued on her psychotropic medications. Medication reconciliation done. Wellbutrin HCL 150 mg/bid, Gabapentin 600 mg/tid, Depakote 750 mg/bid, Seroquel 100 mg/hs ordered
[2018-11-28] MEDS: GABAPENTIN 300 MG CAPSULE (FP) PO SCH ×2 (15:53→21:34)
[2018-11-28] MEDS ORDERED: DIVALPROEX SODIUM 250 MG TABLET E.C. ONE (21:09)
[2018-11-28] MEDS ORDERED: DIVALPROEX SODIUM 500 MG TABLET E.C. ONE (21:09)
[2018-11-28] MEDS: DIVALPROEX 500 MG, DIVALPROEX 250 MG PO SCH (21:34)
[2018-11-28] MEDS: THIAMINE HCL 100 MG TABLET (FP) PO SCH (21:36)
[2018-11-28] MEDS ORDERED: QUEtiapine FUMARATE 100 MG TABLET (FP) PO SCH (22:00)
[2018-11-28] MEDS ORDERED: DIVALPROEX SODIUM 250 MG TABLET E.C. PO SCH (22:00)
[2018-11-28] MEDS ORDERED: DIVALPROEX SODIUM 500 MG TABLET E.C. PO SCH (22:00)
[2018-11-29] MEDS ORDERED: METHADONE HCL 40 MG DISPERSABLE TABLET ONE (06:45)
[2018-11-29] MEDS ORDERED: METHADONE HCL 10 MG TABLET ONE (06:45)
[2018-11-29] MEDS: GABAPENTIN 300 MG CAPSULE (FP) PO SCH ×2 (06:46→15:00)
[2018-11-29] MEDS: METHADONE 80 MG, METHADONE 20 MG PO SCH (06:46)
[2018-11-29] MEDS ORDERED: DIVALPROEX SODIUM 250 MG TABLET E.C. ONE (08:40)
[2018-11-29] MEDS ORDERED: DIVALPROEX SODIUM 500 MG TABLET E.C. ONE (08:40)
[2018-11-29] MEDS ORDERED: PT OWN MED DRAWER 7, Y5N ONE ×3 (08:41→21:30)
[2018-11-29] MEDS: DIVALPROEX 500 MG, DIVALPROEX 250 MG PO SCH (09:19)
[2018-11-29] MEDS: metoPROLOL SUCCINATE 25 MG TAB.SR.24H (FP) PO SCH ×2 (09:19→21:30)
[2018-11-29] MEDS: PRENATAL VITAMINS W/ FOLIC ACID TABLET (FP) PO SCH (09:19)
[2018-11-29] MEDS: buPROPion HCL 75 MG TABLET PO SCH ×2 (09:20→15:00)
--- NOTE | 2018-11-29 10:08 | HP ---
SAMEER ZAMORA Rehab Assess/Revision - Admission History Admitted to Rehab from: [facility] [address] [place] - Vital signs Vital Signs: Vital Signs Period Temp Pulse Resp BP Sys/Hurtado Pulse Ox Last 24 Hr 97.6 F-97.8 F 73-77 18-18 95-106/58-67 - Findings Detox History & Physical reviewed: Yes Concur with findings: Yes Inpatient Rehab Admission - Rehab Decision to Admit Inpatient rehab admission?: Yes - Initial Determination Are CD services needed?: Yes Free of communicable disease: Yes Not in need of hospitalization: Yes - Rehab Admission Criteria Previous failed treatment: Yes Poor recovery environment: Yes Comorbidities: No Lacks judgement: No Patient is meeting Inpatient Rehab admission criteria:: Yes
--- NOTE | 2018-11-29 12:32 | PN ---
[facility] Progress Note Note: PT WAS ADMITTED TO [facility] FROM [address] [facility] [facility] ON 11/27/18. PT WITH A DRUG HX HEROIN,COCAINE AND ALCOHOL AND ON MMTP. NURSE REPORTS PT IS DROWSY AND REQUESTING FOR HER PSYCH MEDS. PT ON METHADONE 100 MG PO DAILY. Vital Signs - 24 hr 11/28/18 11/29/18 11/29/18 21:10 00:30 03:30 Temperature Pulse Rate 73 Respiratory 18 18 Rate Blood Pressure 106/67 11/29/18 11/29/18 07:06 09:13 Temperature 97.8 F 97.6 F Pulse Rate 77 77 Respiratory 18 18 Rate Blood Pressure 98/63 95/58 L PLAN:PT TO BE RE-EVAL BY PSYCH MD RE;MEDICATIONS STAFF TO EVALUATE NECESSITY TO HOLD METHADONE IF DROWSY. NURSE TO CALL PROVIDER. INCREASE PO FLUIDS.
--- NOTE | 2018-11-29 16:03 | CONSULT ---
[facility] Psychiatric Consult - Data Date of interview: 11/29/18 Admission source: [facility] Identifying data: Transfer to [address] for this 33 y/o female (completed detoxification at [address] [place] [address]) for rehabilitative care addressing substance use disorders (alcohol, cannabis, heroin, cocaine) co-morbid with ADHD and bipolar disorder. Patient is single, a mother of four, homeless ( [facility]), unemployed and reportedly deprived of income (occasional assistance from relatives). Substance Abuse History: Patient confirms continuous use of heroin, cocaine, marihuana and alcohol. Details in [facility] report as follows : Smoking history: Former smoker. Have you smoked in the past 12 months: No. Hx Chewing Tobacco Use: No. Initiated information on smoking cessation: No. - Substance & Tx. History. Hx Alcohol Use: Yes. Substance Use Type: Alcohol, Cocaine, Heroin, Marijuana. Hx Substance Use Treatment: Yes ([facility]). - Substances abused. Heroin. Substance route: Inhalation. Frequency: Daily. Amount used: $40. Age of first use: 23. Date of last use: 11/23/18. Cocaine. Substance route : Inhalation. Frequency: Daily. Amount used: $100. Age of first use: 23. Date of last use: 11/23/18. Alcohol. Substance route: Oral. Frequency: Daily. Amount used: pint of vodka. Age of first use: 15. Date of last use: Medical History: Remarkable for a history of endocarditis, heart valve replacement (2018), weight loss and withdrawal-related seizures. Psychiatric History: Patient is still in a moderately sedated state during this interview. Ms Nugent presents with a long standing history of mental illness ( three psychiatric admissions at [facility]). Onset of emotioanal disturbances at age 15. Diagnosed with ADHD, Anxiety Disorder and Bipolar Disorder. Patient is currently on methadone maintenance (100 mg/day) at [facility] in [facility]. At the same site, she sees a psychiatrist for medication management (wellbutrin + gabapentin + remeron + seroquel). Known history of one suicide attempt, 10 years ago, via overdose with medication (zolpidem). Physical/Sexual Abuse/Trauma History: Not discussed in this session. Additional Comment: No toxicology available for review. Mental Status Exam - Mental Status Exam Alert and Oriented to: Time, Place, Person Cognitive Function: Impaired Patient Appearance: Disheveled (thin habitus), Inappropriate (wearing revealing clothes) Mood: Angry, Irritable Affect: Mood Congruent, Constricted Patient Behavior: Sedated Speech Pattern: Inappropriate (use of profane language), Slurred, Rambling (at times) Voice Loudness: Mildly Soft/Quiet Thought Process: Goal Oriented Thought Disorder: Not Present Hallucinations: Denies Suicidal Ideation: Denies Homicidal Ideation: Denies Insight/Judgement: Poor Sleep: Well Appetite: Poor, Weight loss Gait/Station: Other (slow, unsteady gait) Psychiatric Findings - Problem List ([place] 1, 2,3) (1) Sedated due to medication Current Visit: Yes Status: Acute (2) Alcohol use disorder Current Visit: Yes Status: Chronic (3) Opioid dependence on agonist therapy Current Visit: Yes Status: Chronic (4) Cocaine use disorder Current Visit: Yes Status: Chronic (5) Substance induced mood disorder Current Visit: Yes Status: Chronic (6) History of bipolar disorder Current Visit: Yes Status: Chronic - Initial Treatment Plan Initial Treatment Plan: Met with patient in the presence of nurse Shipley. Ms Nugent remains sedated and unsteady. Will continue to hold wellbutrin and valproate. Falls precautions. Observation. Will follow.
[2018-11-29] MEDS: THIAMINE HCL 100 MG TABLET (FP) PO SCH (21:29)
[2018-11-30] MEDS: hydrOXYzine PAMOATE 50 MG CAPSULE (FP) PO PRN ×3 (02:02→21:42)
[2018-11-30] MEDS ORDERED: METHADONE HCL 10 MG TABLET ONE (06:30)
[2018-11-30] MEDS ORDERED: METHADONE HCL 40 MG DISPERSABLE TABLET ONE (06:30)
[2018-11-30] MEDS: METHADONE 80 MG, METHADONE 20 MG PO SCH (06:31)
[2018-11-30] MEDS: metoPROLOL SUCCINATE 25 MG TAB.SR.24H (FP) PO SCH ×2 (09:49→21:40)
[2018-11-30] MEDS: PRENATAL VITAMINS W/ FOLIC ACID TABLET (FP) PO SCH (09:49)
--- NOTE | 2018-11-30 10:13 | PN ---
Psychiatric Progress Note Vital Signs: Vital Signs Period Temp Pulse Resp BP Sys/Hurtado Pulse Ox Last 24 Hr 97.7 F 73-85 17-18 103-107/64-70 Date of Session: 11/30/18 Chief Complaint:: " I feel weird. I need my medications." HPI: Patient restless, anxious, and upset because she has yet to receive her psychotropic medications. Medications were held because patient was sedated and lethargic. ROS: Patieint coherent, alert and oriented X3. Current Medications: Active Medications Generic Name Dose Route Start Last Admin Trade Name Freq PRN Reason Stop Dose Admin Acetaminophen 650 mg 11/27/18 13:42 Tylenol - PO Q4H PRN FEVER Al Hydroxide/Mg Hydroxide 30 ml 11/27/18 13:42 Mylanta Oral Suspension - PO Q6H PRN DYSPEPSIA Eucalyptus/Menthol/Phenol/Sorbitol 1 each 11/27/18 13:42 Cepastat Lozenge - MM Q4H PRN SORE THROAT Guaifenesin 10 ml 11/27/18 13:42 Robitussin - PO Q6H PRN COUGH Hydroxyzine Pamoate 50 mg 11/27/18 13:42 11/30/18 02:02 Vistaril - PO 50 mg Q4H PRN Administration AGITATION Ibuprofen 400 mg 11/27/18 13:42 Motrin - PO Q6H PRN Pain Level 4-6 Loperamide HCl 4 mg 11/27/18 13:42 Imodium - PO Q6H PRN DIARRHEA Magnesium Citrate 300 ml 11/27/18 13:42 Citroma - PO Q48H PRN CONSTIPATION Magnesium Hydroxide 30 ml 11/27/18 13:42 Milk Of Magnesia - PO DAILY PRN CONSTIPATION Melatonin 5 mg 11/27/18 22:00 Melatonin PO HS PRN INSOMNIA Methadone HCl 80 mg/ Methadone 100 mg 11/28/18 06:00 11/30/18 06:31 HCl 20 mg PO 100 mg 0600 SUNITA Administration Metoprolol Succinate 12.5 mg 11/27/18 22:00 11/30/18 09:49 Toprol Xl - PO Not Given BID SUNITA Multivit/Folic Acid/Iron 1 tab 11/28/18 10:00 11/30/18 09:49 Vitamins (Sjr) - PO 1 tab DAILY SUNITA Administration Pseudoephedrine/Triprolidine 1 combo 11/27/18 13:42 Actifed - PO TID PRN NASAL CONGESTION Thiamine HCl 100 mg 11/27/18 22:00 11/29/18 21:29 Vitamin B1 - PO 100 mg HS SUNITA Administration Medication(s) Change(s): Yes. Current Side Effect: No Lab tests ordered: No Lab tests reviewed: Yes Provider note:: Patient requesting to resume her psychotropic medications. Dr. Lindsey and Dr. Mason's note read and appreciated. Patient presented as fatigue and sedated during her initial consultation with Dr. Lindsey and therefore was not ordered psychotropic medications. [facility] pharmacy contacted at [phone] and able to speak to pharmacist. As per pharmacy patient received a 30 day prescription of Wellbutrin 200mg SR + Gabapentin 300mg daily + 600mg HS + Seroquel 100mg HS + remeron 15mg on 11/22/18. Patient reports medications compliance but compliance is questionable as patient is unable to recall her dosages. At present, patient is coherent, alert and oriented X3. Will resume patient on Wellbutrin 300mg XL + Gabapentin 300mg BID + Seroque 50mg HS (lower dose due to risk of oversedation). Will hold additional dose of gabapentin 300mg + mirtazapine 15mg HS due to risk of oversedation. Benefits and side effects discussed. Verbal consent given. Patient satisifed and receptive to feedback. Total face to face time:: 25 Mental Status Exam - Mental Status Exam Alert and Oriented to: Time, Place, Person Cognitive Function: Good Patient Appearance: Well Groomed Mood: Irritable (slightly irritable due to not receiving medications yesterday) Affect: Appropriate Patient Behavior: Cooperative Speech Pattern: Appropriate Voice Loudness: Normal Thought Process: Goal Oriented Thought Disorder: Not Present Hallucinations: Denies Suicidal Ideation: Denies Homicidal Ideation: Denies Insight/Judgement: Poor Sleep: Fair Appetite: Fair Muscle strength/Tone: Normal Gait/Station: Normal Psychiatric Treatment Plan - Problem List (1) Alcohol use disorder Current Visit: Yes (2) Cocaine use disorder Current Visit: Yes (3) History of bipolar disorder Current Visit: Yes (4) Opioid dependence on agonist therapy Current Visit: Yes (5) Substance induced mood disorder Current Visit: Yes
[2018-11-30] MEDS: GABAPENTIN 300 MG CAPSULE (FP) PO SCH ×2 (11:04→21:40)
[2018-11-30] MEDS ORDERED: COLLOIDAL OATMEAL 1 BAR EACH TP PRN (12:57)
[2018-11-30] MEDS ORDERED: BUPROPION HCL 200 MG PO SCH (16:00)
[2018-11-30] MEDS: THIAMINE HCL 100 MG TABLET (FP) PO SCH (21:39)
[2018-11-30] MEDS: QUEtiapine FUMARATE 50 MG TABLET PO SCH (21:40)
[2018-12-01] MEDS: METHADONE 80 MG, METHADONE 20 MG PO SCH (06:37)
[2018-12-01] MEDS ORDERED: METHADONE HCL 40 MG DISPERSABLE TABLET ONE (06:37)
[2018-12-01] MEDS ORDERED: METHADONE HCL 10 MG TABLET ONE (06:37)
[2018-12-01] MEDS ORDERED: PT OWN MED DRAWER 7, Y5N ONE (09:16)
[2018-12-01] MEDS: metoPROLOL SUCCINATE 25 MG TAB.SR.24H (FP) PO SCH ×2 (09:41→21:27)
[2018-12-01] MEDS: PRENATAL VITAMINS W/ FOLIC ACID TABLET (FP) PO SCH (09:42)
[2018-12-01] MEDS: GABAPENTIN 300 MG CAPSULE (FP) PO SCH ×2 (09:42→21:25)
[2018-12-01] MEDS: THIAMINE HCL 100 MG TABLET (FP) PO SCH (21:25)
[2018-12-01] MEDS: QUEtiapine FUMARATE 50 MG TABLET PO SCH (21:25)
[2018-12-01] MEDS: hydrOXYzine PAMOATE 50 MG CAPSULE (FP) PO PRN (21:27)
[2018-12-02] MEDS ORDERED: METHADONE HCL 40 MG DISPERSABLE TABLET ONE (06:12)
[2018-12-02] MEDS ORDERED: METHADONE HCL 10 MG TABLET ONE (06:12)
[2018-12-02] MEDS: METHADONE 80 MG, METHADONE 20 MG PO SCH (06:12)
[2018-12-02] MEDS: metoPROLOL SUCCINATE 25 MG TAB.SR.24H (FP) PO SCH ×2 (09:50→21:35)
[2018-12-02] MEDS: GABAPENTIN 300 MG CAPSULE (FP) PO SCH ×2 (09:50→21:35)
[2018-12-02] MEDS: PRENATAL VITAMINS W/ FOLIC ACID TABLET (FP) PO SCH (09:50)
[2018-12-02] MEDS: hydrOXYzine PAMOATE 50 MG CAPSULE (FP) PO PRN (09:52)
[2018-12-02] MEDS: THIAMINE HCL 100 MG TABLET (FP) PO SCH (21:34)
[2018-12-02] MEDS: QUEtiapine FUMARATE 50 MG TABLET PO SCH (21:34)
[2018-12-03] MEDS ORDERED: METHADONE HCL 10 MG TABLET ONE (06:24)
[2018-12-03] MEDS ORDERED: METHADONE HCL 40 MG DISPERSABLE TABLET ONE (06:24)
[2018-12-03] MEDS: METHADONE 80 MG, METHADONE 20 MG PO SCH (06:54)
[2018-12-03] MEDS: PRENATAL VITAMINS W/ FOLIC ACID TABLET (FP) PO SCH (09:35)
[2018-12-03] MEDS: metoPROLOL SUCCINATE 25 MG TAB.SR.24H (FP) PO SCH ×2 (09:35→21:08)
[2018-12-03] MEDS: GABAPENTIN 300 MG CAPSULE (FP) PO SCH ×2 (09:36→21:08)
[2018-12-03] MEDS: hydrOXYzine PAMOATE 50 MG CAPSULE (FP) PO PRN (14:09)
[2018-12-03] MEDS ORDERED: PT OWN MED DRAWER 7, Y5N ONE ×2 (14:12→14:29)
[2018-12-03] MEDS: QUEtiapine FUMARATE 50 MG TABLET PO SCH (21:08)
[2018-12-03] MEDS: THIAMINE HCL 100 MG TABLET (FP) PO SCH (21:08)
[2018-12-04] MEDS ORDERED: METHADONE HCL 10 MG TABLET ONE (06:19)
[2018-12-04] MEDS: METHADONE 80 MG, METHADONE 20 MG PO SCH (06:20)
[2018-12-04] MEDS ORDERED: METHADONE HCL 40 MG DISPERSABLE TABLET ONE (06:20)
[2018-12-04] MEDS: PRENATAL VITAMINS W/ FOLIC ACID TABLET (FP) PO SCH (09:40)
[2018-12-04] MEDS: GABAPENTIN 300 MG CAPSULE (FP) PO SCH ×2 (09:40→21:50)
[2018-12-04] MEDS: metoPROLOL SUCCINATE 25 MG TAB.SR.24H (FP) PO SCH ×2 (09:41→21:50)
[2018-12-04] MEDS: QUEtiapine FUMARATE 50 MG TABLET PO SCH (21:50)
[2018-12-04] MEDS: THIAMINE HCL 100 MG TABLET (FP) PO SCH (21:50)
[2018-12-05] MEDS ORDERED: METHADONE HCL 10 MG TABLET ONE (05:52)
[2018-12-05] MEDS ORDERED: METHADONE HCL 40 MG DISPERSABLE TABLET ONE (05:53)
[2018-12-05] MEDS: METHADONE 80 MG, METHADONE 20 MG PO SCH (06:19)
[2018-12-05] MEDS: GABAPENTIN 300 MG CAPSULE (FP) PO SCH ×2 (09:45→21:15)
[2018-12-05] MEDS: PRENATAL VITAMINS W/ FOLIC ACID TABLET (FP) PO SCH (09:45)
[2018-12-05] MEDS: metoPROLOL SUCCINATE 25 MG TAB.SR.24H (FP) PO SCH ×2 (10:30→21:16)
[2018-12-05] MEDS: THIAMINE HCL 100 MG TABLET (FP) PO SCH (21:15)
[2018-12-05] MEDS: QUEtiapine FUMARATE 50 MG TABLET PO SCH (21:15)
[2018-12-06] MEDS ORDERED: METHADONE HCL 10 MG TABLET ONE (05:46)
[2018-12-06] MEDS ORDERED: METHADONE HCL 40 MG DISPERSABLE TABLET ONE (05:46)
[2018-12-06] MEDS: METHADONE 80 MG, METHADONE 20 MG PO SCH (06:32)
[2018-12-06] MEDS: metoPROLOL SUCCINATE 25 MG TAB.SR.24H (FP) PO SCH ×2 (09:50→21:12)
[2018-12-06] MEDS: PRENATAL VITAMINS W/ FOLIC ACID TABLET (FP) PO SCH (09:50)
[2018-12-06] MEDS: GABAPENTIN 300 MG CAPSULE (FP) PO SCH ×2 (09:51→21:10)
[2018-12-06] MEDS: QUEtiapine FUMARATE 50 MG TABLET PO SCH (21:10)
[2018-12-06] MEDS: THIAMINE HCL 100 MG TABLET (FP) PO SCH (21:10)
[2018-12-07] MEDS ORDERED: METHADONE HCL 40 MG DISPERSABLE TABLET ONE (06:52)
[2018-12-07] MEDS ORDERED: METHADONE HCL 10 MG TABLET ONE (06:52)
[2018-12-07] MEDS: METHADONE 80 MG, METHADONE 20 MG PO SCH (06:53)
[2018-12-07] MEDS: PRENATAL VITAMINS W/ FOLIC ACID TABLET (FP) PO SCH (09:59)
[2018-12-07] MEDS: metoPROLOL SUCCINATE 25 MG TAB.SR.24H (FP) PO SCH ×2 (10:00→21:22)
[2018-12-07] MEDS: GABAPENTIN 300 MG CAPSULE (FP) PO SCH ×2 (10:00→21:21)
[2018-12-07] MEDS: hydrOXYzine PAMOATE 50 MG CAPSULE (FP) PO PRN (15:33)
[2018-12-07] MEDS: THIAMINE HCL 100 MG TABLET (FP) PO SCH (21:20)
[2018-12-07] MEDS: QUEtiapine FUMARATE 50 MG TABLET PO SCH (21:20)
[2018-12-08] MEDS ORDERED: METHADONE HCL 40 MG DISPERSABLE TABLET ONE (05:56)
[2018-12-08] MEDS ORDERED: METHADONE HCL 10 MG TABLET ONE (05:56)
[2018-12-08] MEDS: METHADONE 80 MG, METHADONE 20 MG PO SCH (06:26)
[2018-12-08] MEDS: PRENATAL VITAMINS W/ FOLIC ACID TABLET (FP) PO SCH (09:21)
[2018-12-08] MEDS: GABAPENTIN 300 MG CAPSULE (FP) PO SCH ×2 (09:21→21:17)
[2018-12-08] MEDS: metoPROLOL SUCCINATE 25 MG TAB.SR.24H (FP) PO SCH ×2 (09:24→21:17)
[2018-12-08] MEDS: hydrOXYzine PAMOATE 50 MG CAPSULE (FP) PO PRN (11:31)
[2018-12-08] MEDS: THIAMINE HCL 100 MG TABLET (FP) PO SCH (21:17)
[2018-12-08] MEDS: QUEtiapine FUMARATE 50 MG TABLET PO SCH (21:17)
[2018-12-09] MEDS ORDERED: METHADONE HCL 10 MG TABLET ONE (06:21)
[2018-12-09] MEDS: METHADONE 80 MG, METHADONE 20 MG PO SCH (06:22)
[2018-12-09] MEDS ORDERED: METHADONE HCL 40 MG DISPERSABLE TABLET ONE (06:22)
[2018-12-09] MEDS: GABAPENTIN 300 MG CAPSULE (FP) PO SCH ×2 (09:43→21:25)
[2018-12-09] MEDS: metoPROLOL SUCCINATE 25 MG TAB.SR.24H (FP) PO SCH ×2 (09:43→21:26)
[2018-12-09] MEDS: PRENATAL VITAMINS W/ FOLIC ACID TABLET (FP) PO SCH (09:43)
[2018-12-09] MEDS: THIAMINE HCL 100 MG TABLET (FP) PO SCH (21:25)
[2018-12-09] MEDS: QUEtiapine FUMARATE 50 MG TABLET PO SCH (21:25)
[2018-12-10] MEDS ORDERED: METHADONE HCL 40 MG DISPERSABLE TABLET ONE (06:29)
[2018-12-10] MEDS ORDERED: METHADONE HCL 10 MG TABLET ONE (06:29)
[2018-12-10] MEDS: METHADONE 80 MG, METHADONE 20 MG PO SCH (06:30)
[2018-12-10] MEDS: metoPROLOL SUCCINATE 25 MG TAB.SR.24H (FP) PO SCH ×2 (09:25→21:21)
[2018-12-10] MEDS: GABAPENTIN 300 MG CAPSULE (FP) PO SCH ×2 (09:25→21:22)
[2018-12-10] MEDS: PRENATAL VITAMINS W/ FOLIC ACID TABLET (FP) PO SCH (09:25)
[2018-12-10] MEDS: THIAMINE HCL 100 MG TABLET (FP) PO SCH (21:22)
[2018-12-10] MEDS: QUEtiapine FUMARATE 50 MG TABLET PO SCH (21:22)
[2018-12-11] MEDS ORDERED: METHADONE HCL 40 MG DISPERSABLE TABLET ONE (06:45)
[2018-12-11] MEDS: METHADONE 80 MG, METHADONE 20 MG PO SCH (06:45)
[2018-12-11] MEDS ORDERED: METHADONE HCL 10 MG TABLET ONE (06:45)
[2018-12-11] MEDS: GABAPENTIN 300 MG CAPSULE (FP) PO SCH ×2 (09:53→21:43)
[2018-12-11] MEDS: metoPROLOL SUCCINATE 25 MG TAB.SR.24H (FP) PO SCH ×2 (09:53→21:43)
[2018-12-11] MEDS: PRENATAL VITAMINS W/ FOLIC ACID TABLET (FP) PO SCH (09:53)
[2018-12-11] MEDS: THIAMINE HCL 100 MG TABLET (FP) PO SCH (21:42)
[2018-12-11] MEDS: QUEtiapine FUMARATE 50 MG TABLET PO SCH (21:43)
[2018-12-12] MEDS ORDERED: METHADONE HCL 10 MG TABLET ONE (06:38)
[2018-12-12] MEDS ORDERED: METHADONE HCL 40 MG DISPERSABLE TABLET ONE (06:39)
[2018-12-12] MEDS: METHADONE 80 MG, METHADONE 20 MG PO SCH (06:39)
[2018-12-12] MEDS: metoPROLOL SUCCINATE 25 MG TAB.SR.24H (FP) PO SCH ×2 (09:39→21:15)
[2018-12-12] MEDS: PRENATAL VITAMINS W/ FOLIC ACID TABLET (FP) PO SCH (09:39)
[2018-12-12] MEDS: GABAPENTIN 300 MG CAPSULE (FP) PO SCH ×2 (09:39→21:15)
[2018-12-12] MEDS: hydrOXYzine PAMOATE 50 MG CAPSULE (FP) PO PRN (14:01)
[2018-12-12] MEDS: QUEtiapine FUMARATE 50 MG TABLET PO SCH (21:15)
[2018-12-12] MEDS: THIAMINE HCL 100 MG TABLET (FP) PO SCH (21:15)
[2018-12-13] MEDS ORDERED: METHADONE HCL 10 MG TABLET ONE (06:07)
[2018-12-13] MEDS ORDERED: METHADONE HCL 40 MG DISPERSABLE TABLET ONE (06:08)
[2018-12-13] MEDS: METHADONE 80 MG, METHADONE 20 MG PO SCH (06:08)
[2018-12-13] MEDS: metoPROLOL SUCCINATE 25 MG TAB.SR.24H (FP) PO SCH ×2 (09:30→21:28)
[2018-12-13] MEDS: PRENATAL VITAMINS W/ FOLIC ACID TABLET (FP) PO SCH (09:31)
[2018-12-13] MEDS: GABAPENTIN 300 MG CAPSULE (FP) PO SCH ×2 (09:31→21:26)
[2018-12-13] MEDS: THIAMINE HCL 100 MG TABLET (FP) PO SCH (21:26)
[2018-12-13] MEDS: QUEtiapine FUMARATE 50 MG TABLET PO SCH (21:26)
[2018-12-14] MEDS ORDERED: METHADONE HCL 40 MG DISPERSABLE TABLET ONE (05:42)
[2018-12-14] MEDS ORDERED: METHADONE HCL 10 MG TABLET ONE (05:42)
[2018-12-14] MEDS: METHADONE 80 MG, METHADONE 20 MG PO SCH (06:05)
[2018-12-14 06:41] VITALS: TEMP 97.5
[2018-12-14] MEDS: PRENATAL VITAMINS W/ FOLIC ACID TABLET (FP) PO SCH (09:08)
[2018-12-14] MEDS: GABAPENTIN 300 MG CAPSULE (FP) PO SCH (09:08)
[2018-12-14] MEDS: metoPROLOL SUCCINATE 25 MG TAB.SR.24H (FP) PO SCH (09:09)
--- NOTE | 2018-12-14 09:11 | PN ---
S Progress Note (SOAP) Subjective: patient to be discharged today. During her time in rehab, she attended seeking safety and substance abuse groups, met with her counselor for individual therapy. She also made a plan for discharge (discussed in PLAN in this note). Objective: A=O x3, heart sounds regular, lungs clear, abd soft, flat, +BS, skin clear, full ROM. 12/14/18 09:05 Vital Signs - 24 hr 12/14/18 12/14/18 12/14/18 00:30 03:30 06:38 Temperature 97.5 F L Pulse Rate 68 Respiratory 18 18 16 Rate Blood Pressure 100/71 12/14/18 09:06 Assessment: 12/14/18 09:07 Medically stable for discharge. Discharge dx: Cocaine dependence, chronic opioid Dependence, chronic Plan: Aftercare at [facility]; she was told to report there today after 9AM. If she is not accepted, she will return to her [facility] to ensure she keeps her bed. She also plans to go to [employer] to seek employment to keep busy.The patient has a primary care provider in [place] who she will see today for prescriptions. She feels this will help her maintain sobriety. Prescriptions not transmitted to pharmacy because patient states she cannot use [facility] and cannot identify another pharmacy.
--- NOTE | 2018-12-14 09:29 | PN ---
[facility] Progress Note Note: Patient is scheduled for discharge today. Scripts for 30 days supply of medications(Wellbutrin XL 300 mg/day, Gabapentin 300 mg/bid, Seroquel 50 mg/hs) are electronically transmitted to [facility] at [address] [place] [address]
[2018-12-14 11:21] VITALS: BP 102/66; PULSE 90
== END 2018-12-14 10:45 | disposition home or self-care (01) | DRG 772 ==
LOC: YASAS 14:14 → Y3E 14:15 → UNDODISIN 12-10 18:48
PROVIDERS: ADMIT Neuromusculoskeletal Medicine & OMM; ATTEND Neuromusculoskeletal Medicine & OMM
PROC: HZ42ZZZ Group Counseling for Substance Abuse Treatment, Cognitive-Behavioral (ICD-10-PCS; principal; 2018-11-27)
PROC: HZ5 Substance Abuse Treatment, Individual Psychotherapy (ICD-10-PCS; 2018-11-27)
DX: F10.20 Alcohol dependence, uncomplicated (principal); F11.20 Opioid dependence, uncomplicated; F14.20 Cocaine dependence, uncomplicated; F19.24 Other psychoactive substance dependence with psychoactive substance-induced mood disorder; F32.9 Major depressive disorder, single episode, unspecified; R40.4 Transient alteration of awareness

== ENCOUNTER 2025-01-23 18:43 | Inpatient (IN) | payer OTHER ==
[2025-01-23 19:26] VITALS: BMI 23.2
[2025-01-23] MEDS ORDERED: LOPERAMIDE HCL 2 MG CAPSULE PO PRN (21:18)
[2025-01-23] MEDS ORDERED: NALOXONE (NARCAN) HCL 4 MG/0.1 ML SPRAY NS PRN (21:18)
[2025-01-23] MEDS ORDERED: guaiFENesin 600 MG TABLET.ER (FP) PO PRN (21:18)
[2025-01-23] MEDS ORDERED: BENZONATATE 200 MG CAPSULE PO PRN (21:18)
[2025-01-23] MEDS ORDERED: POLYETHYLENE GLYCOL (HEALTHYLAX) 3350 17 GM PACKET PO PRN (21:18)
[2025-01-23] MEDS ORDERED: P-EPHED 60MG/TRIPROLIDI 2.5MG TABLET PO PRN (21:18)
[2025-01-23] MEDS ORDERED: MAGNESIUM HYDROX 2400MG/30ML ORAL SUSPENSION 30 ML CUP PO PRN (21:18)
[2025-01-23] MEDS ORDERED: IBUPROFEN 400 MG TABLET (FP) PO PRN (21:18)
[2025-01-23] MEDS ORDERED: IBUPROFEN 600 MG TABLET (FP) PO PRN (21:18)
[2025-01-23] MEDS ORDERED: BENZOCAINE/MENTHOL (CHLORASEPTIC ) LOZENGE MM PRN (21:18)
[2025-01-23] MEDS ORDERED: NICOTINE POLACRILEX 2 MG LOZENGE BC PRN (21:18)
[2025-01-23] MEDS ORDERED: NICOTINE POLACRILEX 2 MG GUM BUC PRN (21:18)
[2025-01-23] MEDS ORDERED: METHOCARBAMOL 750 MG TAB PO PRN (21:19)
[2025-01-23] MEDS ORDERED: MELATONIN 5 MG TABLETS ONE (22:45)
[2025-01-23] MEDS: THIAMINE 100 MG TABLET PO SCH (22:47)
[2025-01-23] MEDS: MELATONIN 5 MG TABLETS PO SCH (22:47)
[2025-01-23] MEDS: BUDESONIDE/FORMETEROL FUMARATE 80/4.5 mcg INHALER IH SCH (23:13)
[2025-01-24] MEDS: TUBERCULIN PPD 5 TU/0.1ML SYRINGE (IN PATIENT USE ONLY) ID ONE ×2 (07:28→11:25)
[2025-01-24] MEDS: PRENATAL VITAMINS W/ FOLIC ACID TABLET (FP) PO SCH (10:15)
[2025-01-24] MEDS: FOLIC ACID 1 MG TABLET (FP) PO SCH (10:15)
[2025-01-24 11:11] LABS: MCHC 30.2 g/dl (32.2-35.5); MEAN CELL VOLUME 96.2 fl (79.4-94.8); MEAN PLT VOLUME 10.5 fl (9.4-12.3); RDW 15.9 % (12.1-16.8)
[2025-01-24] MEDS ORDERED: TUBERCULIN PPD 5 TU/0.1ML VIAL ID ONE (11:19)
[2025-01-24 11:48] LABS: GLUCOSE,RANDOM 84.0 mg/dL (74-106); TOT PROT 7.5 g/dl (6.4-8.2)
[2025-01-24 11:50] LABS: CO2 24.0 mmol/L (21-32)
[2025-01-24 11:51] LABS: ALK PHOS 128.0 U/L (40-150)
[2025-01-24 11:54] LABS: SGOT/AST 25.0 U/L (5-34); SGPT/ALT 21.0 U/L (0-55)
[2025-01-24 12:17] LABS: CREATININE 0.74 mg/dL (0.55-1.3)
[2025-01-24] MEDS: GABAPENTIN 300 MG CAPSULE PO SCH (13:27)
[2025-01-24] MEDS: hydrOXYzine PAMOATE 25 MG CAPSULE (FP) PO PRN (16:45)
[2025-01-24] MEDS: ACETAMINOPHEN 325 MG TABLET (FP) PO PRN (21:10)
[2025-01-25 10:38] LABS: EPI CELLS 5 /uL (0-25.1); HYALINE CASTS 0 /uL (0-3.1); URINE APPEARANCE CLEAR; URINE BACTERIA 200 /uL (0-1359); URINE BILIRUBIN NEGATIVE (NEGATIVE); URINE COLOR YELLOW; URINE GLUCOSE (UA) NEGATIVE (NEGATIVE); URINE KETONE NEGATIVE (NEGATIVE); URINE LEUK ESTERASE 3+ (NEGATIVE); URINE NITRITE NEGATIVE (NEGATIVE); URINE PROTEIN NEGATIVE (NEGATIVE); URINE RBC 5 /uL (0-23.9); URINE UROBILINOGEN 1.0 mg/dL (0.2-1.0); URINE WBC 243 /uL (0-25.8)
[2025-01-25] MEDS: METHOCARBAMOL 500 MG TABLET PO PRN (15:32)
[2025-01-26] MEDS: DOCUSATE SODIUM 100 MG CAPSULE (FP) PO PRN (10:26)
[2025-01-26] MEDS ORDERED: BISMUTH SUBSALICYLATE 524 MG/30 ML PO PRN (15:02)
[2025-01-26] MEDS ORDERED: BENZONATATE 200 MG CAPSULE PO PRN (15:02)
[2025-01-26] MEDS ORDERED: ONDANSETRON *ODT* 4 MG TABLET SL PRN (15:02)
[2025-01-26] MEDS ORDERED: guaiFENesin 600 MG TABLET.ER (FP) PO PRN (15:02)
[2025-01-26] MEDS ORDERED: DICYCLOMINE HCL 10 MG CAPSULE PO PRN (15:02)
[2025-01-26] MEDS: MAG HYDROX/AL HYDROX/SIMETH 30 ML UNIT-DOSE CUP PO PRN (17:00)
[2025-01-26 18:03] VITALS: BP 135/89; PULSE 84; RESP 18; TEMP 97.4
[2025-01-26] MEDS ORDERED: BACLOFEN 10 MG TABLET (FP) PO SCH (22:00)
== END 2025-01-26 18:10 | disposition home or self-care (01) | DRG 772 ==
LOC: YASAS 18:43 → Y5N 22:15
PROVIDERS: ADMIT Neuromusculoskeletal Medicine & OMM; ATTEND Psychiatry & Neurology Pain Medicine
PROC: HZ42ZZZ Group Counseling for Substance Abuse Treatment, Cognitive-Behavioral (ICD-10-PCS; principal; 2025-01-23)
DX: F11.20 Opioid dependence, uncomplicated (principal); F14.10 Cocaine abuse, uncomplicated; F17.210 Nicotine dependence, cigarettes, uncomplicated; F25.9 Schizoaffective disorder, unspecified; F19.280 Other psychoactive substance dependence with psychoactive substance-induced anxiety disorder; F19.282 Other psychoactive substance dependence with psychoactive substance-induced sleep disorder; F41.1 Generalized anxiety disorder; J45.909 Unspecified asthma, uncomplicated; Z95.4 Presence of other heart-valve replacement; Z86.711 Personal history of pulmonary embolism; Z86.79 Personal history of other diseases of the circulatory system; Z59.01 Sheltered homelessness
CPT/HCPCS: 36415; 80053; 81003; 82962; 85027; 86780; 93005; 93010

== ENCOUNTER 2025-01-26 20:03 | Inpatient (IN) | payer OTHER ==
[2025-01-26] MEDS ORDERED: guaiFENesin 600 MG TABLET.ER (FP) PO PRN (21:02)
[2025-01-26] MEDS ORDERED: P-EPHED 60MG/TRIPROLIDI 2.5MG TABLET PO PRN (21:02)
[2025-01-26] MEDS ORDERED: NALOXONE (NARCAN) HCL 4 MG/0.1 ML SPRAY NS PRN (21:02)
[2025-01-26] MEDS ORDERED: NALOXONE HCL 0.4 MG/ML VIAL IVPUSH PRN (21:02)
[2025-01-26] MEDS ORDERED: MAGNESIUM HYDROX 2400MG/30ML ORAL SUSPENSION 30 ML CUP PO PRN (21:02)
[2025-01-26] MEDS ORDERED: METHOCARBAMOL 500 MG TABLET PO PRN (21:02)
[2025-01-26] MEDS ORDERED: BENZOCAINE/MENTHOL (CHLORASEPTIC ) LOZENGE MM PRN (21:02)
[2025-01-26] MEDS ORDERED: BENZONATATE 200 MG CAPSULE PO PRN (21:02)
[2025-01-26] MEDS ORDERED: LOPERAMIDE HCL 2 MG CAPSULE PO PRN (21:02)
[2025-01-26] MEDS ORDERED: NICOTINE POLACRILEX 2 MG GUM BUC PRN (21:02)
[2025-01-26] MEDS ORDERED: POLYETHYLENE GLYCOL (HEALTHYLAX) 3350 17 GM PACKET PO PRN (21:02)
[2025-01-26] MEDS ORDERED: NICOTINE POLACRILEX 2 MG LOZENGE BC PRN (21:02)
[2025-01-26] MEDS: BUDESONIDE/FORMETEROL FUMARATE 80/4.5 mcg INHALER IH SCH (21:38)
[2025-01-26] MEDS: MELATONIN 5 MG TABLETS PO SCH (21:38)
[2025-01-26] MEDS: THIAMINE 100 MG TABLET PO SCH (21:38)
[2025-01-26] MEDS: MAG HYDROX/AL HYDROX/SIMETH 30 ML UNIT-DOSE CUP PO PRN (21:38)
[2025-01-26] MEDS: GABAPENTIN 300 MG CAPSULE PO SCH (21:38)
[2025-01-27] MEDS: PRENATAL VITAMINS W/ FOLIC ACID TABLET (FP) PO SCH (10:22)
[2025-01-27] MEDS: DOCUSATE SODIUM 100 MG CAPSULE (FP) PO PRN (10:22)
[2025-01-27] MEDS: FOLIC ACID 1 MG TABLET (FP) PO SCH (10:22)
[2025-01-27] MEDS: ACETAMINOPHEN 325 MG TABLET (FP) PO PRN (10:24)
[2025-01-27] MEDS: METHOCARBAMOL 500 MG TABLET PO PRN (13:29)
[2025-01-27] MEDS: LIDOCAINE PATCH REMOVAL MC SCH (21:37)
[2025-01-28] MEDS: LIDOCAINE 5% TOPICAL PATCH TP PRN (10:07)
[2025-02-04] MEDS: GABAPENTIN 400 MG CAPSULE PO SCH (14:11)
[2025-02-06] MEDS: hydrOXYzine PAMOATE 25 MG CAPSULE (FP) PO PRN (21:46)
[2025-02-10] MEDS ORDERED: BACLOFEN 10 MG TABLET (FP) PO SCH (14:00)
[2025-02-10] MEDS: BACLOFEN 10 MG TABLET (FP) PO SCH (16:24)
[2025-02-11] MEDS: GABAPENTIN 300 MG CAPSULE PO SCH (21:13)
[2025-02-11] MEDS: MELATONIN 5 MG TABLETS PO SCH (21:13)
[2025-02-13] MEDS: BACLOFEN 10 MG TABLET (FP) PO SCH (10:22)
[2025-02-16] MEDS: MIRTAZAPINE 15 MG TABLET (FP) PO SCH (21:08)
[2025-02-23 06:52] VITALS: RESP 18
[2025-02-23 09:32] VITALS: BP 140/81; PULSE 99; TEMP 97.6
== END 2025-02-23 10:47 | disposition home or self-care (01) | DRG 772 ==
LOC: YASAS 20:03 → Y5N 20:05
PROVIDERS: ADMIT Psychiatry & Neurology Pain Medicine; ATTEND Psychiatry & Neurology Pain Medicine
PROC: HZ42ZZZ Group Counseling for Substance Abuse Treatment, Cognitive-Behavioral (ICD-10-PCS; principal; 2025-01-26)
DX: F14.20 Cocaine dependence, uncomplicated (principal); F11.20 Opioid dependence, uncomplicated; F17.210 Nicotine dependence, cigarettes, uncomplicated; F25.9 Schizoaffective disorder, unspecified; F31.81 Bipolar II disorder; F41.1 Generalized anxiety disorder; F19.282 Other psychoactive substance dependence with psychoactive substance-induced sleep disorder; F19.280 Other psychoactive substance dependence with psychoactive substance-induced anxiety disorder; F19.24 Other psychoactive substance dependence with psychoactive substance-induced mood disorder; J45.909 Unspecified asthma, uncomplicated; Z95.2 Presence of prosthetic heart valve; Z86.711 Personal history of pulmonary embolism; Z59.01 Sheltered homelessness
CPT/HCPCS: J0475